=== PATIENT | female | born 1940 | race Caucasian/White ===

== ENCOUNTER 2017-07-11 11:08 | Inpatient (IN) | payer MEDICARE, OTHER ==
[~2017-07-11] VITALS: Ht 160 cm; Wt 80.7 kg
--- NOTE | 2017-07-11 11:20 | NUR ---
AAOX3, BBPA FROM [facility]: BILATERAL LOWER EXTREMITY SWELLING. SKIN IS WARM AND DRY. RESP IS EVEN AND UNLABORED WITH NAD NOTED. DR SPEARS AT BS FOR EVAL.
[2017-07-11 11:31] LABS: BASOPHILS # (AUTO) 0.1 /CMM (0.0-0.2); BASOPHILS % (AUTO) 1.6 % (0.0-2.0); EOSINOPHILS # (AUTO) 0.1 /CMM (0.0-0.7); EOSINOPHILS % (AUTO) 2.1 % (0.0-6.0); HEMATOCRIT 33 % (33-45); HEMOGLOBIN 11.1 g/dL (11.5-14.8); LYMPHOCYTES # (AUTO) 0.6 /CMM (0.8-4.8); LYMPHOCYTES % (AUTO) 9.1 % (20.0-44.0); MEAN CORPUSCULAR HEMOGLOBIN 33 PG (26.0-33.0); MEAN CORPUSCULAR HGB CONC 34 g/dl (31.0-36.0); MEAN CORPUSCULAR VOLUME 97 fL (82-100); MONOCYTES # (AUTO) 0.6 /CMM (0.1-1.30); MONOCYTES % (AUTO) 9.2 % (2.0-12.0); NEUTROPHILS # (AUTO) 5.1 /CMM (1.8-8.9); PLATELET COUNT (AUTO) 87 /CMM (150-450); RDW COEFFICIENT OF VARIATION 13.6 (11.5-15.0); RED BLOOD CELL COUNT(AUTO) 3.37 MIL/uL (4.0-5.2); WHITE BLOOD COUNT (AUTO) 6.5 K/uL (4.3-11.0)
[2017-07-11 11:42] LABS: CALCIUM, SERUM 7.9 mg/dL (8.5-10.1); CARBON DIOXIDE 30 mmol/L (21-32); CHLORIDE 94 mmol/L (98-107); CREATININE 4.6 mg/dL (0.6-1.3); GLUCOSE 172 mg/dL (74-106); POTASSIUM 4.2 mmol/L (3.5-5.1); SODIUM SERUM 131 mmol/L (136-145); UREA NITROGEN, BLOOD 28 mg/dL (7-18)
[2017-07-11 11:51] LABS: TROPONIN I < 0.017 ng/mL (0.00-0.056)
[2017-07-11 11:56] LABS: INR 1.39 (0.87-1.13); PROTHROMBIN TIME 14.7 SECS (9.5-12.7)
[2017-07-11] MEDS ORDERED: LORAZEPAM INJ 2 MG/ML VIAL IV ONE (12:00)
[2017-07-11] MEDS ORDERED: LORAZEPAM INJ 2 MG/ML VIAL ONE (12:01)
--- NOTE | 2017-07-11 12:27 | NUR ---
X-RAY AT BEDSIDE
[2017-07-11 12:32] LABS: BAND % (MANUAL) 1 % (0.0-5.0); EOSINOPHILS % (MANUAL) 3 % (0-4); LYMPHOCYTES % (MANUAL) 11 % (16-48); MONOCYTES % (MANUAL) 4 % (0-11.0); NEUTROPHILS % (MANUAL) 81 (42-76)
--- NOTE | 2017-07-11 12:33 | NUR ---
[facility] PAGED MORIAH JOHNSON PICTURES EDITOR [phone]
[2017-07-11] MEDS ORDERED: ATOR40TA PO (12:36)
[2017-07-11] MEDS ORDERED: MAGN400O6 PO (12:36)
[2017-07-11] MEDS ORDERED: NA P133E RC (12:36)
[2017-07-11] MEDS ORDERED: BISA10SU8 RC (12:36)
[2017-07-11] MEDS ORDERED: CARV12.52 PO (12:45)
[2017-07-11] MEDS ORDERED: DONE10TA44 PO (12:45)
[2017-07-11] MEDS ORDERED: BUME1TAB4 PO (12:45)
[2017-07-11] MEDS ORDERED: CLON0.1T PO (12:45)
[2017-07-11] MEDS ORDERED: DIPH-873 PO (12:45)
--- NOTE | 2017-07-11 13:09 | NUR ---
SECOND CALL TO MORIAH JOHNSON [phone]. PER [facility] [employer] MANAGER NOW 1899.
[2017-07-11] MEDS ORDERED: FOLI0.8T2 PO (13:10)
[2017-07-11] MEDS ORDERED: CINA30TA PO (13:10)
[2017-07-11] MEDS ORDERED: SERT25TA PO (13:10)
[2017-07-11] MEDS ORDERED: NIFE60TA69 PO (13:10)
[2017-07-11] MEDS ORDERED: OMEP20CA10 PO (13:10)
[2017-07-11] MEDS ORDERED: [UNRECOGNIZED DRUG - CODE] PO (13:10)
[2017-07-11] MEDS ORDERED: INSU3INS6 SQ (13:10)
[2017-07-11] MEDS ORDERED: HYDR-4077 PO (13:10)
[2017-07-11] MEDS ORDERED: LORA1TAB PO ×2 (13:10)
[2017-07-11] MEDS ORDERED: INSU100V3 SQ (13:10)
[2017-07-11] MEDS ORDERED: ONDA4TAB5 PO (13:10)
[2017-07-11] MEDS ORDERED: ZOLP5TAB7 PO (13:10)
--- NOTE | 2017-07-11 13:41 | NUR ---
Patient is resting comfortably in bed with eyes closed. Easily aroused. VSS
--- NOTE | 2017-07-11 14:04 | NUR ---
REPORT GIVEN TO THERESA Obrien RN FOR CECILIA MS [id number]
--- NOTE | 2017-07-11 15:00 | NUR ---
PT. ARRIVING FROM ER,VIA STRETCHER,INITIALLY YELLING OFF AND ON,WANTING TO GET OOB.
[2017-07-11] MEDS ORDERED: MAG HYDROX/AL HYDROX/SIMETH 30 ML UDC PO PRN (16:00)
[2017-07-11] MEDS ORDERED: HYDROCODONE/APAP 5/325MG 1 EACH TABLET PO PRN (16:00)
[2017-07-11] MEDS ORDERED: ENOXAPARIN SODIUM 40 MG/0.4 ML DISP.SYRIN SQ SCH (16:00)
[2017-07-11] MEDS ORDERED: ONDANSETRON HCL/PF 4 MG/2 ML VIAL IVP PRN (16:00)
[2017-07-11] MEDS ORDERED: BISACODYL SUPP (10 MG) 10 MG/SUPP.RECT SUPP.RECT RC PRN (16:00)
[2017-07-11] MEDS ORDERED: DEXTROSE 50%-WATER 50 ML DISP.SYRIN IV PRN ×2 (16:00→21:00)
[2017-07-11] MEDS ORDERED: MAGNESIUM HYDROXIDE 30 ML UDC PO PRN (16:00)
[2017-07-11] MEDS ORDERED: LORAZEPAM 1 MG TABLET PO PRN (16:00)
[2017-07-11] MEDS ORDERED: ACETAMINOPHEN 325 MG TABLET PO PRN (16:00)
--- NOTE | 2017-07-11 16:45 | NUR ---
DUE TO CONFUSION RELOCATED TO RM. 309-2 WITH A 1-1 SITTER.
[2017-07-11 17:19] VITALS: BP 153/78
--- NOTE | 2017-07-11 17:30 | NUR ---
UNABLE TO DO ADMIT PHOTOS PER DIEM ARRIVING AT THIS TIME.ADDITIONALLY CAN NOT GIVE COREG MED OR BUMEX DUE TO DIALYSIS AND POSSIBILITY OF HYPOTENSION FOLLOWING DIALYSIS.
[2017-07-11] MEDS: BLOOD SUGAR DIAGNOSTIC 1 EACH STRIP IN SCH ×2 (17:45→21:32)
[2017-07-11] MEDS: BUMETANIDE (1 MG) 1 MG TABLET PO SCH ×2 (17:46→21:24)
[2017-07-11] MEDS: CARVEDILOL 12.5 MG TABLET PO SCH ×2 (17:49→21:25)
--- NOTE | 2017-07-11 19:45 | NUR ---
MS DERICK INITIAL NOTES RECEIVED REPORT FROM AM NURSE THERESA Luis CHECKED PT SEEN IN BED ON SEMI FOWLERS POSITION ,AWAKE AND CONFUSION NOTED, SPEAK WOLOF LANGUAGE ONLY, DIALYSIS TREATMENT STILL GOING ON , DIALYSIS NURSE AT THE BEDSIDE. NO SIGNS OF ANY ACUTE DISTRESS NOTED. WILL CONTINUE TO MONITOR.
--- NOTE | 2017-07-11 20:20 | NUR ---
MS MANAGER LIGHTING NOTES' DIALYSIS TREATMENT DONE, PT STILL AWAKE AND SEEMS UPSET AND CONFUSED. TRIED TO TALKED TO HER IN PORTUGUESE SIMPLE WORD THAT I KNOW TO CALMED HER DOWN. VITAL SIGNS STABLE NO SIGNS OF ANY ACUTE DISTRESS NOTED. COVERED HER WITH WARM BLANKET AND WILL CONTINUE TO MONITOR.
[2017-07-11] MEDS: Z GUARD REMEDY 2 OZ OINT TP PRN (21:00)
[2017-07-11] MEDS ORDERED: INSULIN REGULAR, HUMAN 100 UNIT/ML 3 ML VIAL SQ PRN (21:00)
[2017-07-11 21:03] VITALS: BP 157/74
[2017-07-11] MEDS: CLONIDINE HCL 0.1 MG TABLET PO SCH (21:24)
[2017-07-11] MEDS: DONEPEZIL 5 MG TABLET PO SCH (21:25)
[2017-07-11] MEDS: ATORVASTATIN 40 MG TABLET PO SCH (21:30)
[2017-07-11] MEDS: NIFEdipine XL 60 MG TAB PO SCH (21:30)
--- NOTE | 2017-07-11 21:30 | NUR ---
FIRE SPRINKLER INSTALLER/NOTES PT DAUGHTER ARGENIS CALLED AND TELLING ME THAT IF POSSIBLE GAVE AMBIEN AND ATIVAN TOGETHER TO LET HER MOM SLEEP TONIGHT. SHE ALSO REQUEST IF ANY CONCERNED REGARDING ANY TEST LIKE MRI AND CT SCAN , NEEDS TO NOTIFY HER FIRST . SPOKE TO HER THAT HER MOM DOING FINE RESTING AT THIS TIME AFTER DIALYSIS DONE. BUT NO SIGNS OF ANY AGITATION OR ANY DISCOMFORT. AND IF NEEDS TO GIVE HER SLEEP MEDICATION OR ANXIETY MEDS SI WILL GIVE IT LONG IT ORDERED BY THE DOCTOR. STATED "THANK YOU ".
[2017-07-11] MEDS ORDERED: BLOOD SUGAR DIAGNOSTIC 1 EACH STRIP IN SCH (22:00)
[2017-07-11] MEDS: ZOLPIDEM TARTRATE 5 MG TABLET PO PRN (22:26)
[2017-07-11] MEDS: LORAZEPAM 1 MG TABLET PO PRN (22:26)
--- NOTE | 2017-07-11 22:26 | NUR ---
EXECUTIVE KITCHEN MANAGER/NOTES PT AWAKE AT THIS TIME ANXIOUS, SCREAMING ON AND OFF, TRIED TO CALMED HER DOWN FROM OFFERING SOME SNACKS AND GAVE AMBIEN AND ATIVAN TOO ORDERED AND PER DAUGHTER REQUESTED, NO ASPIRATION NOTED, ATE WELL ,NO SIGNS OF ANY ACUTE DISTRESS NOTED. AFTER SHE ATE , SPONGE BATH RENDERED TO HELPED HER FRESH AND STOPPING HER FROM SCRATCHING HER SKIN Z-GUARD APPLIED ORDERED , KEPT HER WARM AND COMFORTABLE AT ALL TIMES. WILL CONTINUE MONITORING CLOSELY FOR SAFETY.
[2017-07-11] MEDS: INSULIN DETEMIR 100 UNIT/ML CARTRIDGE SQ SCH (22:41)
[2017-07-11] MEDS: INSULIN REGULAR, HUMAN 100 UNIT/ML 3 ML VIAL SQ PRN (22:44)
--- NOTE | 2017-07-12 00:18 | NUR ---
MS UTILITY WORKER FILM PROCESSING , RE- ASSESSMENT NOTED PT SLEEPING COMFORTABLY AT THIS TIME, BREATHING EVEN AND NON-LABORED, NO SIGNS OF ANY ACUTE DISTRESS NOTED. KEPT HER WARM AND COMFORTABLE AT ALL TIMES. WILL CONTINUE TO MONITOR.
[2017-07-12] MEDS: LORAZEPAM 1 MG TABLET PO PRN ×2 (04:09→22:27)
--- NOTE | 2017-07-12 04:15 | NUR ---
MS DERICK NOTES PT WOKE UP STARTED SCREAMING AND TRYING TO GET UP ,TRIED TO CALMED HER DOWN AND CALLED HER DAUGHTER ARGENIS SO SHE CAN SPOKE TO HER , BUT DAUGHTER TOLD ME SHE'S CONFUSED AT TIMES AND SHE DON'T LISTEN TO HER , SHE ALSO MENTIONED TO ME THAT PT CALLING HER MOTHER AND FATHER THAT PASSES AWAY LONG TIME AGO. ATIVAN GIVEN AND PT TOLERATED WELL, APPLIED ALSO SOME LOTION TO HER SKIN BECAUSE NOTICED SHE STARTED SCRATCHING ALL OVER. LET HER SIT FOR A WHILE AND CONTINUE MONITORING FOR SAFETY.
--- NOTE | 2017-07-12 05:27 | NUR ---
MS DERICK NOTES BENADRYL 25 MG PO GIVEN ORDERED. PUT HER BACK TO BED FOR HER SAFETY, STILL ANXIOUS AND CONFUSED, REPEATING WORDS "2 SLEEP MEDICINE ". STILL REFUSING TO PUT HER IV LINE BACK. KEPT HER WARM AND COMFORTABLE AT ALL TIMES.WILL CONTINUE TO MONITOR.
[2017-07-12] MEDS ORDERED: diphenhydrAMINE HCL 50 MG/ML VIAL IV PRN (05:30)
[2017-07-12] MEDS ORDERED: diphenhydrAMINE HCL 50 MG/ML VIAL ONE (05:32)
[2017-07-12] MEDS ORDERED: diphenhydrAMINE HCL 25 MG CAPSULE ONE (05:45)
[2017-07-12] MEDS: diphenhydrAMINE HCL 25 MG CAPSULE PO PRN ×3 (05:47→17:43)
[2017-07-12] MEDS: BLOOD SUGAR DIAGNOSTIC 1 EACH STRIP IN SCH ×4 (06:31→21:22)
[2017-07-12] MEDS: Z GUARD REMEDY 2 OZ OINT TP PRN (06:31)
--- NOTE | 2017-07-12 06:44 | NUR ---
JACQUARD CARD LACER/NOTES BLOOD SUGAR CHECKED 124, NO INSULIN GIVEN ORDERED, STILL REFUSING TO CHANGE HER GOWN . KEPT HER WARM AND COMFORTABLE AT ALL TIMES. PERIODS OF CONFUSION AND ANXIETY ON AND OFF. WILL CONTINUE MONITORING.
--- NOTE | 2017-07-12 07:01 | NUR ---
MS TAPPING MACHINE OPERATOR AUTOMATIC CLOSING NOTES PATIENT IN HER BED ON SITTING POSITION WITH BOTH LOWER LEGS UP ON PILLOWS COMFORTABLY ,EDEMA SUBSIDES NOTED ON HER RIGHT FOOT AND LEGS. CALMED AT THIS TIME NO SIGNS OF ANY ACUTE DISTRESS NOTED, BREATHING EVEN AND UN-LABORED, COVERED WITH BLANKET TO KEEP HER WARM. NO IV LINE AT THIS TIME , CHARGE NURSE AWARE BECAUSE PT SO CONFUSED AND FIGHTING EARLIER WHEN TRIED TO RE-INSERTED HER NEW IV LINE. AV SHUNT NO BLEEDING NOTED ON HIS LEFT UPPER ARM. SITTER AT THE BEDSIDE FOR SAFETY. WILL ENDORSE TO AM NURSE FOR CONTINUITY OF CARE.
--- NOTE | 2017-07-12 07:30 | NUR ---
RN OPENING NOTES RECEIVED PT. IN BED SLEEPING, EASY TO AROUSE, A&OX2. NO SOB, NO S/S OF ACUTE DISTRESS. BED IS IN LOW POSITION, 2 SIDE RAILS UP, PT. HAS 1:1 SITTER, DUE TO PULLING OUT 2 IV'S. CALL LIGHT WITHIN REACH. WILL CONTINUE TO ASSESS AND MONITOR.
[2017-07-12 08:00] VITALS: BP 157/73
[2017-07-12] MEDS ORDERED: CARVEDILOL 12.5 MG TABLET PO SCH (09:00)
[2017-07-12 10:09] LABS: BASOPHILS % (AUTO) 0.6 % (0.0-2.0); EOSINOPHILS # (AUTO) 0.1 /CMM (0.0-0.7); EOSINOPHILS % (AUTO) 2.2 % (0.0-6.0); HEMATOCRIT 35 % (33-45); HEMOGLOBIN 11.5 g/dL (11.5-14.8); LYMPHOCYTES # (AUTO) 0.8 /CMM (0.8-4.8); LYMPHOCYTES % (AUTO) 12.6 % (20.0-44.0); MEAN CORPUSCULAR HEMOGLOBIN 33 PG (26.0-33.0); MEAN CORPUSCULAR HGB CONC 33 g/dl (31.0-36.0); MEAN CORPUSCULAR VOLUME 99 fL (82-100); MONOCYTES # (AUTO) 0.9 /CMM (0.1-1.30); MONOCYTES % (AUTO) 14.1 % (2.0-12.0); NEUTROPHILS # (AUTO) 4.4 /CMM (1.8-8.9); NEUTROPHILS % (AUTO) 70.5 % (43.0-81.0); PLATELET COUNT (AUTO) 61 /CMM (150-450); RDW COEFFICIENT OF VARIATION 14.7 (11.5-15.0); RED BLOOD CELL COUNT(AUTO) 3.52 MIL/uL (4.0-5.2); WHITE BLOOD COUNT (AUTO) 6.3 K/uL (4.3-11.0)
[2017-07-12 10:25] LABS: CALCIUM, SERUM 8.1 mg/dL (8.5-10.1); CARBON DIOXIDE 33 mmol/L (21-32); CHLORIDE 96 mmol/L (98-107); CREATININE 4.3 mg/dL (0.6-1.3); GLUCOSE 109 mg/dL (74-106); MAGNESIUM 1.7 mg/dL (1.8-2.4); PHOSPHORUS 3.4 mg/dL (2.5-4.9); POTASSIUM 4.5 mmol/L (3.5-5.1); SODIUM SERUM 137 mmol/L (136-145); UREA NITROGEN, BLOOD 24 mg/dL (7-18)
[2017-07-12] MEDS: NEOMY SULF/BACITRAC ZN/POLY 15 GM TUBE TP SCH (10:30)
[2017-07-12 10:38] LABS: CHOLESTEROL 88 mg/dL (<200); HDL CHOLESTEROL 45 mg/dL (40-60); LDL 29 mg/dL (0-99); TRIGLYCERIDES 75 mg/dL (30-150)
[2017-07-12] MEDS: CINACALCET HCL 30 MG TABLET PO SCH (10:57)
[2017-07-12] MEDS: NIFEdipine XL 60 MG TAB PO SCH ×2 (10:58→20:53)
[2017-07-12] MEDS: BUMETANIDE (1 MG) 1 MG TABLET PO SCH ×3 (10:58→17:43)
[2017-07-12] MEDS: SERTRALINE HCL 25 MG TABLET PO SCH (10:59)
[2017-07-12] MEDS: VIT B CMPLX 3/FA/VIT C/BIOTIN 1 TAB TABLET PO SCH (10:59)
[2017-07-12] MEDS: CARVEDILOL 12.5 MG TABLET PO SCH ×2 (11:00→17:43)
[2017-07-12] MEDS: CLONIDINE HCL 0.1 MG TABLET PO SCH ×2 (11:00→20:53)
[2017-07-12] MEDS: PANTOPRAZOLE 40 MG TABLET.DR PO SCH (11:02)
[2017-07-12] MEDS: INSULIN REGULAR, HUMAN 100 UNIT/ML 3 ML VIAL SQ PRN ×2 (12:42→17:55)
[2017-07-12 12:52] LABS: BAND % (MANUAL) 1 % (0.0-5.0); EOSINOPHILS % (MANUAL) 1 % (0-4); LYMPHOCYTES % (MANUAL) 11 % (16-48); MONOCYTES % (MANUAL) 9 % (0-11.0); NEUTROPHILS % (MANUAL) 78 (42-76)
[2017-07-12 16:00] VITALS: BP 143/91
[2017-07-12 18:02] LABS: APPEARANCE,URINE TURBID (CLEAR); BILIRUBIN,URINE NEGATIVE (NEGATIVE); BLOOD, URINE TRACE-INTA Ery/uL (NEGATIVE); COLOR,URINE YELLOW (YELLOW); KETONES,URINE NEGATIVE (NEGATIVE); LEUKOCYTE ESTERASE ,URINE NEGATIVE (NEGATIVE); NITRITE, URINE NEGATIVE (NEGATIVE); PH,URINE 8.5 (5.0-8.0); PROTEIN,URINE 2+ mg/dl (NEGATIVE); UGLUCOSE NEGATIVE (NEGATIVE)
[2017-07-12 19:12] VITALS: BP 143/91
--- NOTE | 2017-07-12 19:40 | NUR ---
RN OPENING NOTES RECEIVED REPORT FROM DAYSHIFT RNPRESTON. FOUND Pt AWAKE SITTING IN CHAIR. FAMILY VISITING AT BEDSIDE. NO S/S OF ACUTE DISTRESS OR SOB NOTED. Pt IS A/OX2, IVORIAN/MALTESE SPEAKING ONLY. NO SIGNS OF PAIN AT THIS TIME. IV ACCESS PULLED OUT DURING DAYSHIFT. WILL PUT IN A NEW IV. WITH 1:1 SITTER AT BEDSIDE. SAFETY MEASURES IN PLACE. BED LOW, LOCKED, HOB ELEVATED, SIDE RAILS UP, CALL LIGHT AND BEDSIDE TABLE WITHIN REACH. WILL CONTINUE TO MONITOR Pt THROUGHOUT THE NIGHT FOR SAFETY.
--- NOTE | 2017-07-12 19:45 | NUR ---
RN OPENING NOTES RECEIVED REPORT FROM BOYDORISAIAS RNKIN. FOUND Pt AWAKE, RESTING IN BED. NO S/S OF ACUTE DISTRESS OR SOB NOTED. Pt IS A/OX4, VERBAL, ABLE TO MAKE NEEDS KNOWN. IV ACCESS ON RFA #18G, IVF NS @100ML/HR. SAFETY MEASURES IN PLACE. BED LOW, LOCKED, HOB ELEVATED, SIDE RAILS UP, CALL LIGHT AND BEDSIDE TABLE WITHIN REACH. WILL CONTINUE TO MONITOR Pt THROUGHOUT THE NIGHT FOR SAFETY. Addendum: 07/12/17 at 2032 by CATERINA SAUER RN WRONG Pt. NOTE FOR Pt IN RM 327-1
--- NOTE | 2017-07-12 19:47 | NUR ---
RN CLOSING NOTES 1:1 SITTER AT BEDSIDE. PT. SITTING UP OB BEDSIDE COMMODE, A&OX2. NO SOB, NO S/S OF ACUTE DISTRESS. PT.'S FAMILY AT BEDSIDE REQUESTED A DRUM STENCILER CONSULT, AND SWALLOW EVALUATION DUE TO PT. HAVING A GAG REFLEX AFTER EATING AT HOME. BED IS IN LOW POSITION, 2 SIDE RAILS UP, AND CALL LIGHT WITHIN REACH. WILL ENDORSE REPORT TO RETIREMENT VILLAGE MANAGER NURSE.
[2017-07-12] MEDS: ZOLPIDEM TARTRATE 5 MG TABLET PO PRN (20:54)
[2017-07-12] MEDS: ATORVASTATIN 40 MG TABLET PO SCH (21:07)
[2017-07-12] MEDS: DONEPEZIL 5 MG TABLET PO SCH (21:07)
[2017-07-12] MEDS: INSULIN DETEMIR 100 UNIT/ML CARTRIDGE SQ SCH (21:36)
[2017-07-12 22:00] VITALS: BP 131/59
--- NOTE | 2017-07-12 22:16 | NUR ---
ACCUCHECK BG 156. ADMINISTERED SCHEDULED LEVEMIR 15UN.
[2017-07-12 22:38] LABS: BACTERIA,URINE 3+ /HPF (None Seen); RBC,URINE 0-2 /HPF (0-2); SQUAMOUS EPITHELIAL CELL,UR Moderate /HPF (None Seen); WBC,URINE 0-2 /HPF (0-3); YEAST,URINE Few /HPF (None Seen)
[2017-07-13] MEDS: diphenhydrAMINE HCL 25 MG CAPSULE PO PRN ×2 (00:37→09:02)
--- NOTE | 2017-07-13 06:30 | NUR ---
ACCUCHECK BG 170. ADMINISTERED 3UN OF INSULIN PER SLIDING SCALE.
[2017-07-13] MEDS: LORAZEPAM 1 MG TABLET PO PRN ×2 (06:33→23:17)
[2017-07-13] MEDS: INSULIN REGULAR, HUMAN 100 UNIT/ML 3 ML VIAL SQ PRN ×3 (06:44→23:07)
--- NOTE | 2017-07-13 06:45 | NUR ---
RN CLOSING NOTES: Pt CURRENTLY GETTING HD AT BEDSIDE. OK TO PUT ON PRN GAIL SOFT RESTRAINTS DURING HD PER DR. RASCON's ORDER. 1:1 SITTER. NO SIGNIFICANT CHANGES IN Pt's CONDITION. Pt STABLE AT THIS TIME. ALL NEEDS MET AND ATTENDED TO. SAFETY MEASURES IN PLACE. WILL ENDORSE TO DAYSHIFT RN FOR Pt's CECILIA.
[2017-07-13] MEDS: BLOOD SUGAR DIAGNOSTIC 1 EACH STRIP IN SCH ×4 (06:47→22:55)
[2017-07-13] MEDS: PANTOPRAZOLE 40 MG TABLET.DR PO SCH (07:30)
--- NOTE | 2017-07-13 07:30 | NUR ---
RN OPENING NOTES PT. HAS 1:1 SITTER, RECEIVED PT. IN BED A&OX2, RECEIVING HEMODIALYSIS AT THIS TIME. PT. HAS SOFT WRIST RESTRAINTS BILATERALLY DUE TO PT. TRYING TO PULL OUT CATHETERS DURING DIALYSIS. PT. HAS NO SOB, NO S/S OF ACUTE DISTRESS. BED IS IN LOW POSITION, 2 SIDE RAILS UP. CALL LIGHT WITHIN REACH. WILL CONTINUE TO ASSESS AND MONITOR.
--- NOTE | 2017-07-13 08:20 | NUR ---
HEMODIALYSIS WAS COMPLETED WITHOUT COMPLICATIONS, AND WITH 2 L OUTPUT. PT.'S SOFT WRIST RESTRAINTS WERE REMOVED.
[2017-07-13] MEDS: CINACALCET HCL 30 MG TABLET PO SCH (09:03)
[2017-07-13] MEDS: CARVEDILOL 12.5 MG TABLET PO SCH ×2 (09:03→17:29)
[2017-07-13] MEDS: CLONIDINE HCL 0.1 MG TABLET PO SCH ×2 (09:03→22:40)
[2017-07-13] MEDS: VIT B CMPLX 3/FA/VIT C/BIOTIN 1 TAB TABLET PO SCH (09:04)
[2017-07-13] MEDS: BUMETANIDE (1 MG) 1 MG TABLET PO SCH ×3 (09:04→17:29)
[2017-07-13] MEDS: NIFEdipine XL 60 MG TAB PO SCH ×2 (09:04→22:39)
[2017-07-13] MEDS: SERTRALINE HCL 25 MG TABLET PO SCH (09:04)
[2017-07-13] MEDS: NEOMY SULF/BACITRAC ZN/POLY 15 GM TUBE TP SCH (09:05)
[2017-07-13 09:17] VITALS: BP 147/81
[2017-07-13] MEDS: CEPHALEXIN MONOHYDRATE 250 MG CAPSULE PO SCH ×2 (12:00→22:40)
[2017-07-13] MEDS: FLUCONAZOLE (100 MG) 100 MG TABLET PO SCH (12:45)
[2017-07-13 16:00] VITALS: BP 141/69
--- NOTE | 2017-07-13 19:40 | NUR ---
RN OPENING NOTES RECEIVED REPORT FROM BOYDIDFT MELANI JOHNSTON. FOUND Pt AWAKE RESTING IN BED. NO S/S OF ACUTE DISTRESS OR SOB NOTED. FAMILY VISITING AT BEDSIDE. Pt IS A/OX1 CONFUSED. 1:1 SITTER. NO IV ACCESS, MD AWARE. [place]ACK[place]IE AV SHUNT. SAFETY MEASURES IN PLACE. BED LOW, LOCKED, HOB ELEVATED, SIDE RAILS UP CALL LIGHT AND BEDSIDE TABLE WITHIN REACH. WILL CONTINUE TO MONITOR Pt THROUGHOUT THE NIGHT.
--- NOTE | 2017-07-13 20:24 | NUR ---
RN CLOSING NOTES 1:1 SITTER AT BEDSIDE. PT. SITTING UP IN BED, A&OX2. NO SOB, NO S/S OF ACUTE DISTRESS. PT.'S FAMILY AT BEDSIDE. BED IS IN LOW POSITION, 2 SIDE RAILS UP, AND CALL LIGHT WITHIN REACH. WILL ENDORSE REPORT TO TIMBER HAND NURSE.
[2017-07-13 22:00] VITALS: BP 146/73
--- NOTE | 2017-07-13 22:00 | NUR ---
ACCUCHECK BG 156. ADMINISTERED 2UN OF INSULIN PER SLIDING SCALE. IN ADDITION TO SCHEDULED LEVEMIR 15UN.
[2017-07-13] MEDS: ATORVASTATIN 40 MG TABLET PO SCH (22:37)
[2017-07-13] MEDS: DONEPEZIL 5 MG TABLET PO SCH (22:40)
[2017-07-13] MEDS: INSULIN DETEMIR 100 UNIT/ML CARTRIDGE SQ SCH (23:06)
[2017-07-13] MEDS: ZOLPIDEM TARTRATE 5 MG TABLET PO PRN (23:17)
[2017-07-14] MEDS: BLOOD SUGAR DIAGNOSTIC 1 EACH STRIP IN SCH ×4 (06:34→21:36)
--- NOTE | 2017-07-14 06:35 | NUR ---
ACCUCHECK 57. GAVE Pt OJ AND BREAD. WILL RECHECK BG.
--- NOTE | 2017-07-14 06:40 | NUR ---
RN CLOSING NOTES NO OTHER SIGNIFICANT CHANGES DURING THE SHIFT. Pt's CONDITION REMAINS STABLE. NO S/S OF ACUTE DISTRESS OR SOB NOTED DURING THE NIGHT. ALL NEEDS MET AND ATTENDED TO. SAFETY MEASURES IN PLACE. WILL ENDORSE TO DAYSHIFT RN FOR Pt's CECILIA.
--- NOTE | 2017-07-14 06:50 | NUR ---
RECHECKED BG 75.
[2017-07-14] MEDS: PANTOPRAZOLE 40 MG TABLET.DR PO SCH (07:30)
--- NOTE | 2017-07-14 07:50 | NUR ---
MS RN OPENING NOTE REPORT RECEIVED ON THE PATIENT AT THE BEDSIDE. PATIENT IS AWAKE, CONFUSED AND AGITATED. INTRODUCED TO PATIENT IN SW[place], PATIENT WAS RESPONSIVE TO SIMPLE CONTEXT. UNDERSTANDS/SPEAKS AND REPLIES TO UKRAINIAN/SWISS ONLY. SITTER AT THE BEDSIDE. BED IS LOCKED IN LOWEST POSITION. SIDE RAILS UP X 3. BED ALARM ON. WILL CONTINUE TO MONITOR.
[2017-07-14 08:00] VITALS: BP 137/70
--- NOTE | 2017-07-14 08:56 | NUR ---
MS RN NOTE PATIENT REFUSED PROTONIX. TRIED COMING BACK TWICE. STILL REFUSING. MEDICATION NOT ADMINISTERED.
[2017-07-14] MEDS: CARVEDILOL 12.5 MG TABLET PO SCH ×2 (09:00→16:27)
[2017-07-14] MEDS: CLONIDINE HCL 0.1 MG TABLET PO SCH ×2 (09:00→20:35)
[2017-07-14] MEDS: VIT B CMPLX 3/FA/VIT C/BIOTIN 1 TAB TABLET PO SCH (09:00)
[2017-07-14] MEDS: CEPHALEXIN MONOHYDRATE 250 MG CAPSULE PO SCH ×2 (09:59→20:25)
[2017-07-14] MEDS: CINACALCET HCL 30 MG TABLET PO SCH (09:59)
[2017-07-14] MEDS: BUMETANIDE (1 MG) 1 MG TABLET PO SCH ×3 (09:59→16:38)
[2017-07-14] MEDS: SERTRALINE HCL 25 MG TABLET PO SCH (10:00)
[2017-07-14] MEDS: FLUCONAZOLE (100 MG) 100 MG TABLET PO SCH (10:00)
[2017-07-14] MEDS: NIFEdipine XL 60 MG TAB PO SCH ×2 (10:05→20:25)
[2017-07-14] MEDS ORDERED: PANTOPRAZOLE 40 MG/PACK PACK GT SCH (10:11)
--- NOTE | 2017-07-14 10:12 | NUR ---
MS RN NOTE NOTE NEPHRO SHANTEL NOT ADMINISTERED. MEDICATION COULD NOT BE SCANNED. PHARMACY NOTIFIED. PHARMACY WILL RESCHEDULE MEDICATION.
--- NOTE | 2017-07-14 10:15 | NUR ---
MS RN NOTE CARVEDILOL AND CLONIDINE NOT ADMINISTERED AT THIS TIME. PATIENT'S BP 135/62 HR 67. ADMINISTERED ONE OUT OF THREE BP MEDICATIONS. WILL MONITOR BP AND RECHECK IN 30 MINUTES. MEDICATIONS WILL BE ADMINISTERED IF NEEDED.
[2017-07-14] MEDS ORDERED: CEPH250C PO (10:47)
[2017-07-14] MEDS ORDERED: FLUC100T8 PO (10:47)
[2017-07-14] MEDS: INSULIN REGULAR, HUMAN 100 UNIT/ML 3 ML VIAL SQ PRN ×3 (11:12→21:41)
--- NOTE | 2017-07-14 11:12 | NUR ---
MS RN NOTE PATIENT WAS SHAKING AND CALLING A DOCTOR. NURSE, CHARGE NURSE MARY LOU, AND THE CAR ELECTRONICS INSTALLER TIFF AT THE BEDSIDE. BLOOD PRESSURE 90/45. PATIENT PLACED IN MODIFIED TRENDELENBURG. PLACED ON 2L O2 VIA NC. BLOOD GLUCOSE MONITORED AND RECORDER 168MG/DL. PER CAR ELECTRONICS INSTALLER ORDER PER SCALE INSULIN NON-ADMINISTERED PATIENT IS NOT EATING AND REFUSING FOOD.
[2017-07-14 11:35] LABS: BASOPHILS % (AUTO) 0.4 % (0.0-2.0); EOSINOPHILS # (AUTO) 0.1 /CMM (0.0-0.7); HEMATOCRIT 31 % (33-45); HEMOGLOBIN 10.3 g/dL (11.5-14.8); LYMPHOCYTES # (AUTO) 0.8 /CMM (0.8-4.8); LYMPHOCYTES % (AUTO) 11.9 % (20.0-44.0); MEAN CORPUSCULAR HEMOGLOBIN 33 PG (26.0-33.0); MEAN CORPUSCULAR HGB CONC 33 g/dl (31.0-36.0); MEAN CORPUSCULAR VOLUME 99 fL (82-100); MONOCYTES # (AUTO) 0.7 /CMM (0.1-1.30); MONOCYTES % (AUTO) 10.3 % (2.0-12.0); NEUTROPHILS # (AUTO) 4.9 /CMM (1.8-8.9); NEUTROPHILS % (AUTO) 75.4 % (43.0-81.0); PLATELET COUNT (AUTO) 62 /CMM (150-450); RDW COEFFICIENT OF VARIATION 14.2 (11.5-15.0); RED BLOOD CELL COUNT(AUTO) 3.12 MIL/uL (4.0-5.2); WHITE BLOOD COUNT (AUTO) 6.5 K/uL (4.3-11.0)
[2017-07-14 12:12] LABS: CALCIUM, SERUM 7.3 mg/dL (8.5-10.1); CARBON DIOXIDE 31 mmol/L (21-32); CHLORIDE 92 mmol/L (98-107); CREATININE 5.1 mg/dL (0.6-1.3); GLUCOSE 176 mg/dL (74-106); MAGNESIUM 1.6 mg/dL (1.8-2.4); PHOSPHORUS 2.9 mg/dL (2.5-4.9); SODIUM SERUM 130 mmol/L (136-145); UREA NITROGEN, BLOOD 28 mg/dL (7-18)
[2017-07-14] MEDS: Z GUARD REMEDY 2 OZ OINT TP PRN (12:13)
[2017-07-14 12:14] LABS: BAND % (MANUAL) 4 % (0.0-5.0); EOSINOPHILS % (MANUAL) 1 % (0-4); LYMPHOCYTES % (MANUAL) 11 % (16-48); MONOCYTES % (MANUAL) 10 % (0-11.0); NEUTROPHILS % (MANUAL) 74 (42-76)
[2017-07-14] MEDS ORDERED: IOHEXOL-350 100 ML VIAL IV ONE (12:47)
[2017-07-14] MEDS ORDERED: IV NS 0.9% 250 ML IV ONE (12:48)
[2017-07-14] MEDS ORDERED: CT SWABBABLE VALVE TRANS SET 1 EA INFUS.SET MC ONE (12:48)
[2017-07-14] MEDS: LORAZEPAM 1 MG TABLET PO PRN ×2 (12:56→21:43)
--- NOTE | 2017-07-14 13:01 | NUR ---
PATIENT REMOVED HER IV LINE IN RFA, PATIENT APPEARS CONFUSED AND DISORIENTED, HX OF DEMENTIA. RE INSERTED IV G 20 IN RIGHT AC WITH GOOD BLOOD RETURN. INFORMED OXYACETYLENE BURNER-TIFF. APPLIED MITTENS TO BILATERAL HANDS TO PREVENT PULLING OFF TUBES. CALLED [facility], CONSENTED CT PULMONARY ANGIOGRAM, WITNESSED BY ANOTHER RN.
--- NOTE | 2017-07-14 14:03 | NUR ---
MS RN NOTE NOTIFIED TIFF OF CT/CHEST X-RAY RESULTS BEING READY. INFORMED MAGNESIUM LEVEL BEING 1.6. ORDERED TO GIVE MAGNESIUM 1 G X1. ORDER NOTED AND ACKNOWLEDGED.
--- NOTE | 2017-07-14 14:13 | NUR ---
MS RN NOTE MEDICATION BUMEX NON ADMINISTERED. PATIENT IS RECEIVING DIALYSIS.
[2017-07-14] MEDS ORDERED: Magnesium 1GM/D5W 100ML PREMIX 100 ML IV SCH ×2 (14:30→17:00)
[2017-07-14 16:00] VITALS: BP 142/72
--- NOTE | 2017-07-14 16:00 | NUR ---
MS RN NOTE DIALYSIS COMPLETED. 1500ML REMOVED. PATIENT TOLERATED PROCEDURE WELL. BP 140/63. TEMPERATURE 97.8. PATIENT IS STABLE. VS WNL.
[2017-07-14] MEDS: NEOMY SULF/BACITRAC ZN/POLY 15 GM TUBE TP SCH (16:38)
--- NOTE | 2017-07-14 19:37 | NUR ---
MS RN CLOSING NOTE. PATIENT IS RESTING IN BED. BED IS IN LOWEST POSITION, LOCKED, SIDE RAILS UP X3, BED ALARM ON. PATIENT IN SALDAÑA'S POSITION. FAMILY AT THE BEDSIDE. ALL NEEDS WITHIN REACH. VS WNL. PATIENT IS STABLE. WILL ENDORSE TO NEXT SHIFT FOR CECILIA.
--- NOTE | 2017-07-14 19:45 | NUR ---
MS RN INITIAL NOTES PT IS LAYING IN BED, AWAKE AND ALERT, VERBALLY RESPONSIVE (ALGERIAN/ SAO TOMEAN SPEAKING ONLY). FAMILY AT BEDSIDE PT IS ON ROOM AIR BREATHING EVENLY AND UNLABORED, NO SIGNS OF SOB OR DISTRESS. IV IS INTACT AND PATENT WITH NO FLUIDS RUNNING AT THIS TIME. BED IS IN LOW AND LOCKED POSITION. SITTER AT BEDSIDE. WILL CONTINUE TO MONITOR PT.
[2017-07-14 20:00] VITALS: BP 139/70
--- NOTE | 2017-07-14 21:00 | NUR ---
BP MEDS PT HAD A DROP IN BP EARLIER TODAY, I HELD CATAPRES BUT CONTINUED TO GIVE PROCARDIA. WILL CONTINUE TO MONITOR PT
[2017-07-14] MEDS: DONEPEZIL 5 MG TABLET PO SCH (21:36)
[2017-07-14] MEDS: ATORVASTATIN 40 MG TABLET PO SCH (21:37)
[2017-07-14] MEDS: INSULIN DETEMIR 100 UNIT/ML CARTRIDGE SQ SCH (21:42)
[2017-07-14] MEDS: ZOLPIDEM TARTRATE 5 MG TABLET PO PRN (21:43)
[2017-07-15] MEDS: diphenhydrAMINE HCL 25 MG CAPSULE PO PRN (01:32)
[2017-07-15] MEDS: BLOOD SUGAR DIAGNOSTIC 1 EACH STRIP IN SCH ×2 (06:14→12:39)
--- NOTE | 2017-07-15 06:27 | NUR ---
MS RN CLOSING NOTES PT IS IN BED ALERT AND AWAKE, CONFUSED. ON 2L NC BREATHING EVENLY AND UNLABORED WITH NO SIGNS OF SOB OR DISTRESS. PT IS READY FOR DISCHARGE, EXIT CARE HAS BEEN COMPLETED. ALL NEEDS WERE ANTICIPATED AND MET. WILL ENDORSE TO DAY SHIFT
--- NOTE | 2017-07-15 07:15 | NUR ---
MS RN OPENING NOTE REPORT RECEIVED ON THE PATIENT. PATIENT IS SLEEPING IN BED COMFORTABLY. VS WNL. SITTER AT THE BEDSIDE. BED IS LOCKED IN LOWEST POSITION, SIDE RAILS ELEVATED X 3, BED ALARM IS ON. ALL NEEDS WITHIN REACH. WILL COME BACK FOR A DAILY ASSESSMENT SHORTLY.
[2017-07-15 08:00] VITALS: BP 158/64
[2017-07-15] MEDS: CLONIDINE HCL 0.1 MG TABLET PO SCH (09:00)
[2017-07-15] MEDS: CARVEDILOL 12.5 MG TABLET PO SCH (09:00)
[2017-07-15] MEDS: Z GUARD REMEDY 2 OZ OINT TP PRN ×2 (09:02→12:41)
[2017-07-15] MEDS: NEOMY SULF/BACITRAC ZN/POLY 15 GM TUBE TP SCH (09:03)
[2017-07-15 09:04] VITALS: BP 158/64
[2017-07-15] MEDS: NIFEdipine XL 60 MG TAB PO SCH (09:04)
[2017-07-15] MEDS: CINACALCET HCL 30 MG TABLET PO SCH (09:04)
[2017-07-15] MEDS: SERTRALINE HCL 25 MG TABLET PO SCH (09:04)
[2017-07-15] MEDS: CEPHALEXIN MONOHYDRATE 250 MG CAPSULE PO SCH (09:04)
[2017-07-15] MEDS: BUMETANIDE (1 MG) 1 MG TABLET PO SCH ×2 (09:04→12:35)
[2017-07-15] MEDS: VIT B CMPLX 3/FA/VIT C/BIOTIN 1 TAB TABLET PO SCH (09:04)
[2017-07-15] MEDS: FLUCONAZOLE (100 MG) 100 MG TABLET PO SCH (09:04)
--- NOTE | 2017-07-15 09:06 | NUR ---
MS RN NOTE CARVEDILOL AND CLONIDINE NON ADMINISTERED AT THIS TIME. SPACING OUT THE BP MEDICATIONS. NIFEDIPINE IS ADMINISTERED. WILL CONTINUE TO MONITOR BP, IF NEEDED, WILL ADMINISTER ADDITIONAL BP MED. PATIENT HAD AN EPISODE OF HYPOTENSION YESTERDAY.
--- NOTE | 2017-07-15 14:45 | NUR ---
MS GRADUATE INTERNSHIP NOTE PATIENT LEFT THE UNIT IN A GURNEY ACCOMPANIED BY THE EMT. REPORT GIVEN TO [facility] HOME WHERE PATIENT IS BEING TRANSFERRED TO . SPOKE TO MASOOD AND GAVE REPORT ON PATIENT. SPOKE TO PATIENT'S DAUGHTER ARGENIS AND INFORMED HER OF PATIENT BEING DISCHARGED AND TRANSPORTED TO [facility] BY AMBULANCE. ALL BELONGINGS ARE ACCOUNTED FOR. PATIENT IS STABLE AT THE TIME OF THE TRANSFER. VS WNL.
== END 2017-07-15 14:45 | DRG 757 ==
LOC: ER 11:21 → MED 14:06
PROVIDERS: ADMIT Nurse Practitioner Acute Care; ATTEND Nurse Practitioner Acute Care
PROC: 5A1D60Z (ICD-10-PCS; principal; 2017-07-11)
DX: B37.49 Other urogenital candidiasis (principal); G93.41 Metabolic encephalopathy; J96.01 Acute respiratory failure with hypoxia; I13.2 Hypertensive heart and chronic kidney disease with heart failure and with stage 5 chronic kidney disease, or end stage renal disease; N18.6 End stage renal disease; E11.22 Type 2 diabetes mellitus with diabetic chronic kidney disease; D69.6 Thrombocytopenia, unspecified; F03.90 Unspecified dementia, unspecified severity, without behavioral disturbance, psychotic disturbance, mood disturbance, and anxiety; E11.65 Type 2 diabetes mellitus with hyperglycemia; E87.1 Hypo-osmolality and hyponatremia; I50.9 Heart failure, unspecified; Z99.2 Dependence on renal dialysis; K21.9 Gastro-esophageal reflux disease without esophagitis; F39 Unspecified mood [affective] disorder; E78.5 Hyperlipidemia, unspecified; Z88.7 Allergy status to serum and vaccine; D63.8 Anemia in other chronic diseases classified elsewhere; R23.4 Changes in skin texture; N64.59 Other signs and symptoms in breast
CPT/HCPCS: 36415; 71010-TC; 80048-TC; 80061-TC; 81000-TC; 82962-TC; 83735-TC; 84100-TC; 84484-TC; 85025-TC; 85730-TC; 87081-TC; 87086-TC; 90935-TC; A4606; J1200; J1815; J2060; J3475; J7050; Q0163; Q9967; Z7610

== ENCOUNTER 2017-10-18 20:11 | Inpatient (IN) | payer MEDICARE, OTHER ==
[~2017-10-18] VITALS: Ht 152.4 cm; Wt 66.7 kg
[~2017-10-18 20:11] MED LIST: ATOR40TA PO; BISA10SU8 RC; BUME1TAB4 PO; CARV12.52 PO; CEPH250C PO; CINA30TA PO; CLON0.1T PO; DIPH-873 PO; DONE10TA44 PO; FLUC100T8 PO; FOLI0.8T2 PO; HYDR-4077 PO; INSU100V3 SQ; INSU3INS6 SQ; LORA1TAB PO; MAGN400O6 PO; NA P133E RC; NIFE60TA69 PO; OMEP20CA10 PO; ONDA4TAB5 PO; SERT25TA PO; [UNRECOGNIZED DRUG - CODE] PO
[2017-10-18] MEDS ORDERED: VANCOMYCIN 1 GM VIAL ONE (20:57)
[2017-10-18] MEDS ORDERED: PIPERACILLIN /TAZOBACTAM 3.375 G VIAL IV ONE (20:57)
[2017-10-18 21:00] LABS: BASOPHILS # (AUTO) 0.4 /CMM (0.0-0.2); BASOPHILS % (AUTO) 4.6 % (0.0-2.0); EOSINOPHILS # (AUTO) 0.2 /CMM (0.0-0.7); EOSINOPHILS % (AUTO) 1.9 % (0.0-6.0); HEMATOCRIT 37 % (33-45); HEMOGLOBIN 12.3 g/dL (11.5-14.8); LYMPHOCYTES # (AUTO) 1.3 /CMM (0.8-4.8); LYMPHOCYTES % (AUTO) 13.8 % (20.0-44.0); MEAN CORPUSCULAR HEMOGLOBIN 32 PG (26.0-33.0); MEAN CORPUSCULAR HGB CONC 33 g/dl (31.0-36.0); MEAN CORPUSCULAR VOLUME 95 fL (82-100); MONOCYTES # (AUTO) 1.3 /CMM (0.1-1.30); MONOCYTES % (AUTO) 14.2 % (2.0-12.0); NEUTROPHILS # (AUTO) 6.3 /CMM (1.8-8.9); NEUTROPHILS % (AUTO) 65.5 % (43.0-81.0); PLATELET COUNT (AUTO) 398 /CMM (150-450); RDW COEFFICIENT OF VARIATION 17.6 (11.5-15.0); RED BLOOD CELL COUNT(AUTO) 3.86 MIL/uL (4.0-5.2); WHITE BLOOD COUNT (AUTO) 9.5 K/uL (4.3-11.0)
[2017-10-18] MEDS ORDERED: PIPERACILLIN /TAZOBACTAM 3.375 G in IV D5W 50 ML IV ONE (21:00)
[2017-10-18] MEDS ORDERED: VANCOMYCIN 1 GM in IV D5W 250 ML IV ONE (21:00)
[2017-10-18 21:16] LABS: INR 1.09 (0.87-1.13); PROTHROMBIN TIME 11.3 SECS (9.5-12.7)
[2017-10-18 21:18] LABS: ALANINE AMINOTRANSFERASE 14 U/L (12-78); ALBUMIN 2.6 g/dL (3.4-5.0); ALKALINE PHOSPHATASE 129 U/L (46-116); ASPARTATE AMINOTRANSFERASE 28 U/L (15-37); BILIRUBIN,DIRECT 0.3 mg/dL (0.0-0.2); BILIRUBIN,TOTAL 0.7 mg/dL (0.2-1.0); CALCIUM, SERUM 9.3 mg/dL (8.5-10.1); CARBON DIOXIDE 28 mmol/L (21-32); CHLORIDE 93 mmol/L (98-107); CREATININE 5.1 mg/dL (0.6-1.3); GLUCOSE 133 mg/dL (74-106); POTASSIUM 4.3 mmol/L (3.5-5.1); SODIUM SERUM 131 mmol/L (136-145); TOTAL PROTEIN, SERUM 7.9 g/dL (6.4-8.2); UREA NITROGEN, BLOOD 48 mg/dL (7-18)
[2017-10-18 21:20] LABS: TROPONIN I < 0.017 ng/mL (0.00-0.056)
[2017-10-18 23:00] VITALS: BP 188/73
[2017-10-18] MEDS ORDERED: ONDANSETRON HCL/PF 4 MG/2 ML VIAL IVP PRN (23:00)
[2017-10-18] MEDS ORDERED: HYDROCODONE/APAP 5/325MG 1 EACH TABLET PO PRN (23:00)
[2017-10-18] MEDS ORDERED: MAGNESIUM HYDROXIDE 30 ML UDC PO PRN (23:00)
[2017-10-18] MEDS ORDERED: ENOXAPARIN SODIUM 30 MG/0.3 ML DISP.SYRIN SQ SCH (23:00)
[2017-10-18] MEDS ORDERED: MAG HYDROX/AL HYDROX/SIMETH 30 ML UDC PO PRN (23:00)
[2017-10-18] MEDS ORDERED: Z GUARD REMEDY 2 OZ OINT TP PRN (23:00)
[2017-10-18] MEDS ORDERED: ENOXAPARIN SODIUM 30 MG/0.3 ML DISP.SYRIN ONE (23:40)
[2017-10-18] MEDS ORDERED: CEFTRIAXONE 1 G VIAL ONE (23:40)
[2017-10-18] MEDS ORDERED: hydrALAZINE HCL 25 MG TABLET ONE (23:41)
[2017-10-18] MEDS ORDERED: HYDROCODONE/APAP 5/325MG 1 EACH TABLET ONE (23:42)
[2017-10-18] MEDS: CEFTRIAXONE 1 G in IV D5W 50 ML IV SCH (23:47)
[2017-10-18] MEDS: hydrALAZINE HCL 25 MG TABLET PO SCH (23:47)
[2017-10-19] VITALS: BP 160/70
[2017-10-19 03:11] LABS: BASOPHILS % (AUTO) 0.5 % (0.0-2.0); EOSINOPHILS # (AUTO) 0.2 /CMM (0.0-0.7); EOSINOPHILS % (AUTO) 2.8 % (0.0-6.0); HEMATOCRIT 35 % (33-45); HEMOGLOBIN 11.6 g/dL (11.5-14.8); LYMPHOCYTES # (AUTO) 1.3 /CMM (0.8-4.8); LYMPHOCYTES % (AUTO) 14.6 % (20.0-44.0); MEAN CORPUSCULAR HEMOGLOBIN 32 PG (26.0-33.0); MEAN CORPUSCULAR HGB CONC 33 g/dl (31.0-36.0); MEAN CORPUSCULAR VOLUME 97 fL (82-100); MONOCYTES # (AUTO) 1.4 /CMM (0.1-1.30); NEUTROPHILS # (AUTO) 5.8 /CMM (1.8-8.9); NEUTROPHILS % (AUTO) 66.1 % (43.0-81.0); PLATELET COUNT (AUTO) 341 /CMM (150-450); RDW COEFFICIENT OF VARIATION 18.2 (11.5-15.0); RED BLOOD CELL COUNT(AUTO) 3.58 MIL/uL (4.0-5.2); WHITE BLOOD COUNT (AUTO) 8.8 K/uL (4.3-11.0)
[2017-10-19 03:36] LABS: CHOLESTEROL 109 mg/dL (<200); HDL CHOLESTEROL 57 mg/dL (40-60); LDL 34 mg/dL (0-99); TRIGLYCERIDES 61 mg/dL (30-150)
[2017-10-19 03:45] LABS: ALANINE AMINOTRANSFERASE 19 U/L (12-78); ALBUMIN 2.3 g/dL (3.4-5.0); ALKALINE PHOSPHATASE 119 U/L (46-116); ASPARTATE AMINOTRANSFERASE 23 U/L (15-37); BILIRUBIN,TOTAL 0.7 mg/dL (0.2-1.0); CALCIUM, SERUM 9.2 mg/dL (8.5-10.1); CARBON DIOXIDE 28 mmol/L (21-32); CHLORIDE 96 mmol/L (98-107); CREATININE 5.4 mg/dL (0.6-1.3); GLUCOSE 176 mg/dL (74-106); MAGNESIUM 1.7 mg/dL (1.8-2.4); PHOSPHORUS 4.9 mg/dL (2.5-4.9); POTASSIUM 4.1 mmol/L (3.5-5.1); SODIUM SERUM 133 mmol/L (136-145); TOTAL PROTEIN, SERUM 7.2 g/dL (6.4-8.2); UREA NITROGEN, BLOOD 50 mg/dL (7-18)
[2017-10-19 04:31] LABS: B-TYPE NATRIURETIC PEPTIDE 94408 PG/ML (0-125)
[2017-10-19 05:01] LABS: EOSINOPHILS % (MANUAL) 1 % (0-4); LYMPHOCYTES % (MANUAL) 16 % (16-48); MONOCYTES % (MANUAL) 13 % (0-11.0); NEUTROPHILS % (MANUAL) 70 (42-76)
[2017-10-19] MEDS ORDERED: ACETAMINOPHEN 325 MG TABLET ONE (05:18)
[2017-10-19] MEDS ORDERED: hydrALAZINE HCL 25 MG TABLET ONE (05:27)
[2017-10-19] MEDS: hydrALAZINE HCL 25 MG TABLET PO SCH ×3 (05:29→20:33)
[2017-10-19] MEDS: ACETAMINOPHEN 325 MG TABLET PO PRN (05:30)
[2017-10-19] MEDS ORDERED: BENZ0.5T3 PO (07:45)
[2017-10-19] MEDS ORDERED: ZOLP5TAB2 PO (07:45)
[2017-10-19] MEDS ORDERED: LOSA25TA13 PO (07:45)
[2017-10-19] MEDS ORDERED: BLOO-668 IN (07:48)
[2017-10-19] MEDS ORDERED: EPOE1VIA7 SQ (07:48)
[2017-10-19 08:00] VITALS: BP 143/57
[2017-10-19] MEDS ORDERED: FEE PK DOSING 1 MIN EA MC ONE (08:05)
[2017-10-19] MEDS ORDERED: VANCOMYCIN 500 MG in IV D5W 100 ML IV PRN (08:30)
[2017-10-19] MEDS ORDERED: DEXTROSE 50%-WATER 50 ML DISP.SYRIN IV PRN (10:30)
[2017-10-19] MEDS ORDERED: HYDROGEL DRESSING 90 GM TUBE TP PRN (10:30)
[2017-10-19] MEDS: HYDROGEL DRESSING 90 GM TUBE TP SCH (10:30)
[2017-10-19] MEDS: diphenhydrAMINE HCL 50 MG CAPSULE PO SCH ×2 (11:23→18:45)
[2017-10-19] MEDS: BLOOD SUGAR DIAGNOSTIC 1 EACH STRIP IN SCH ×3 (12:16→22:22)
[2017-10-19] MEDS: INSULIN REGULAR, HUMAN 100 UNIT/ML 3 ML VIAL SQ PRN ×3 (12:21→22:25)
[2017-10-19 15:48] VITALS: BP 186/78
[2017-10-19] MEDS ORDERED: hydrALAZINE HCL 50 MG TABLET PO STA (16:00)
[2017-10-19] MEDS: predniSONE 20 MG TABLET PO SCH (16:12)
[2017-10-19 20:00] VITALS: BP 151/20
[2017-10-19] MEDS: HEPARIN SODIUM, PORCINE 5000 UNITS/1 ML VIAL SQ SCH (20:34)
[2017-10-19] MEDS: ZOLPIDEM TARTRATE 5 MG TABLET PO PRN (23:37)
[2017-10-19] MEDS: CEFTRIAXONE 1 G in IV D5W 50 ML IV SCH (23:38)
[2017-10-20] MEDS: diphenhydrAMINE HCL 50 MG CAPSULE PO SCH ×3 (02:00→18:07)
[2017-10-20] MEDS: hydrALAZINE HCL 25 MG TABLET PO SCH ×3 (04:37→21:03)
[2017-10-20] MEDS: BLOOD SUGAR DIAGNOSTIC 1 EACH STRIP IN SCH ×4 (06:35→21:21)
[2017-10-20 08:00] VITALS: BP 184/84
[2017-10-20 08:02] LABS: CALCIUM, SERUM 9.4 mg/dL (8.5-10.1); CHLORIDE 94 mmol/L (98-107); CREATININE 4.5 mg/dL (0.6-1.3); GLUCOSE 129 mg/dL (74-106); POTASSIUM 4.9 mmol/L (3.5-5.1); SODIUM SERUM 133 mmol/L (136-145); UREA NITROGEN, BLOOD 37 mg/dL (7-18)
[2017-10-20 08:15] LABS: CARBON DIOXIDE 25 mmol/L (21-32)
[2017-10-20] MEDS: predniSONE 20 MG TABLET PO SCH (08:21)
[2017-10-20] MEDS: HYDROGEL DRESSING 90 GM TUBE TP SCH (08:21)
[2017-10-20] MEDS: HEPARIN SODIUM, PORCINE 5000 UNITS/1 ML VIAL SQ SCH ×2 (08:23→21:07)
[2017-10-20] MEDS ORDERED: TERAZOSIN HCL 1 MG CAPSULE PO SCH (09:00)
[2017-10-20] MEDS ORDERED: VITAMINS A AND D 56.7 GM TUBE TP PRN (10:30)
[2017-10-20] MEDS: INSULIN REGULAR, HUMAN 100 UNIT/ML 3 ML VIAL SQ PRN ×3 (12:01→21:19)
[2017-10-20 16:00] VITALS: BP 184/55
[2017-10-20] MEDS: CLONIDINE HCL 0.1 MG TABLET PO PRN (17:26)
[2017-10-20] MEDS: LACTOBACILLUS RHAMNOSUS GG 1 EACH CAP.SPRINK PO SCH (17:26)
[2017-10-20 20:00] VITALS: BP 142/97
[2017-10-20] MEDS: ZOLPIDEM TARTRATE 5 MG TABLET PO PRN (22:30)
[2017-10-20] MEDS: CEFTRIAXONE 1 G in IV D5W 50 ML IV SCH (22:30)
[2017-10-21 04:00] VITALS: BP 151/54
[2017-10-21] MEDS: hydrALAZINE HCL 25 MG TABLET PO SCH ×3 (04:06→20:49)
[2017-10-21] MEDS: diphenhydrAMINE HCL 50 MG CAPSULE PO SCH ×3 (04:07→19:45)
[2017-10-21] MEDS: BLOOD SUGAR DIAGNOSTIC 1 EACH STRIP IN SCH ×4 (06:34→22:31)
[2017-10-21 07:10] LABS: BASOPHILS % (AUTO) 0.4 % (0.0-2.0); EOSINOPHILS # (AUTO) 0.2 /CMM (0.0-0.7); EOSINOPHILS % (AUTO) 3.3 % (0.0-6.0); HEMATOCRIT 33 % (33-45); HEMOGLOBIN 10.8 g/dL (11.5-14.8); LYMPHOCYTES % (AUTO) 16.2 % (20.0-44.0); MEAN CORPUSCULAR HEMOGLOBIN 32 PG (26.0-33.0); MEAN CORPUSCULAR HGB CONC 33 g/dl (31.0-36.0); MEAN CORPUSCULAR VOLUME 97 fL (82-100); MONOCYTES # (AUTO) 0.8 /CMM (0.1-1.30); MONOCYTES % (AUTO) 13.3 % (2.0-12.0); NEUTROPHILS # (AUTO) 4.2 /CMM (1.8-8.9); NEUTROPHILS % (AUTO) 66.8 % (43.0-81.0); PLATELET COUNT (AUTO) 281 /CMM (150-450); RDW COEFFICIENT OF VARIATION 18.6 (11.5-15.0); RED BLOOD CELL COUNT(AUTO) 3.37 MIL/uL (4.0-5.2); WHITE BLOOD COUNT (AUTO) 6.3 K/uL (4.3-11.0)
[2017-10-21 07:37] LABS: CALCIUM, SERUM 9.3 mg/dL (8.5-10.1); CARBON DIOXIDE 27 mmol/L (21-32); CHLORIDE 95 mmol/L (98-107); CREATININE 5.3 mg/dL (0.6-1.3); GLUCOSE 85 mg/dL (74-106); POTASSIUM 5.2 mmol/L (3.5-5.1); SODIUM SERUM 133 mmol/L (136-145); UREA NITROGEN, BLOOD 46 mg/dL (7-18); VANCOMYCIN,TROUGH 24 ug/ml (12-20)
[2017-10-21 08:00] VITALS: BP 165/75
[2017-10-21] MEDS: LACTOBACILLUS RHAMNOSUS GG 1 EACH CAP.SPRINK PO SCH ×2 (08:22→17:23)
[2017-10-21] MEDS: predniSONE 20 MG TABLET PO SCH (08:22)
[2017-10-21] MEDS: HEPARIN SODIUM, PORCINE 5000 UNITS/1 ML VIAL SQ SCH ×2 (08:23→20:49)
[2017-10-21] MEDS: ACETAMINOPHEN 325 MG TABLET PO PRN (15:24)
[2017-10-21 16:00] VITALS: BP 166/85
[2017-10-21] MEDS: INSULIN REGULAR, HUMAN 100 UNIT/ML 3 ML VIAL SQ PRN ×2 (17:30→21:45)
[2017-10-21 20:00] VITALS: BP 156/67
[2017-10-21] MEDS: ZOLPIDEM TARTRATE 5 MG TABLET PO PRN (21:48)
[2017-10-21] MEDS: CEFTRIAXONE 1 G in IV D5W 50 ML IV SCH (23:33)
[2017-10-22] MEDS: diphenhydrAMINE HCL 50 MG CAPSULE PO SCH ×3 (04:00→18:00)
[2017-10-22] MEDS: hydrALAZINE HCL 25 MG TABLET PO SCH ×3 (04:06→20:39)
[2017-10-22] MEDS: BLOOD SUGAR DIAGNOSTIC 1 EACH STRIP IN SCH ×4 (06:25→21:57)
[2017-10-22 06:35] LABS: CARBON DIOXIDE 30 mmol/L (21-32); CHLORIDE 97 mmol/L (98-107); CREATININE 4.2 mg/dL (0.6-1.3); GLUCOSE 118 mg/dL (74-106); POTASSIUM 4.6 mmol/L (3.5-5.1); SODIUM SERUM 135 mmol/L (136-145); UREA NITROGEN, BLOOD 33 mg/dL (7-18)
[2017-10-22 08:00] VITALS: BP 172/74
[2017-10-22] MEDS: LACTOBACILLUS RHAMNOSUS GG 1 EACH CAP.SPRINK PO SCH ×2 (09:59→17:56)
[2017-10-22] MEDS: predniSONE 20 MG TABLET PO SCH (09:59)
[2017-10-22] MEDS: HEPARIN SODIUM, PORCINE 5000 UNITS/1 ML VIAL SQ SCH ×2 (10:01→20:43)
[2017-10-22 16:00] VITALS: BP 177/74
[2017-10-22] MEDS: INSULIN REGULAR, HUMAN 100 UNIT/ML 3 ML VIAL SQ PRN ×2 (17:57→22:05)
[2017-10-22 20:00] VITALS: BP 196/72
[2017-10-22 21:00] VITALS: BP 153/68
[2017-10-22] MEDS: ZOLPIDEM TARTRATE 5 MG TABLET PO PRN (22:05)
[2017-10-22] MEDS: CEFTRIAXONE 1 G in IV D5W 50 ML IV SCH (22:05)
[2017-10-23] MEDS: diphenhydrAMINE HCL 50 MG CAPSULE PO SCH ×3 (02:58→20:34)
[2017-10-23] MEDS: hydrALAZINE HCL 25 MG TABLET PO SCH ×3 (05:38→20:23)
[2017-10-23] MEDS: BLOOD SUGAR DIAGNOSTIC 1 EACH STRIP IN SCH ×4 (06:04→20:35)
[2017-10-23 07:39] LABS: BASOPHILS # (AUTO) 0.1 /CMM (0.0-0.2); EOSINOPHILS # (AUTO) 0.3 /CMM (0.0-0.7); EOSINOPHILS % (AUTO) 5.7 % (0.0-6.0); HEMATOCRIT 35 % (33-45); HEMOGLOBIN 11.3 g/dL (11.5-14.8); LYMPHOCYTES % (AUTO) 17.8 % (20.0-44.0); MEAN CORPUSCULAR HEMOGLOBIN 32 PG (26.0-33.0); MEAN CORPUSCULAR HGB CONC 33 g/dl (31.0-36.0); MEAN CORPUSCULAR VOLUME 97 fL (82-100); MONOCYTES # (AUTO) 0.8 /CMM (0.1-1.30); MONOCYTES % (AUTO) 13.1 % (2.0-12.0); NEUTROPHILS # (AUTO) 3.6 /CMM (1.8-8.9); NEUTROPHILS % (AUTO) 62.4 % (43.0-81.0); PLATELET COUNT (AUTO) 269 /CMM (150-450); RDW COEFFICIENT OF VARIATION 17.9 (11.5-15.0); RED BLOOD CELL COUNT(AUTO) 3.55 MIL/uL (4.0-5.2); WHITE BLOOD COUNT (AUTO) 5.8 K/uL (4.3-11.0)
[2017-10-23 07:53] LABS: CALCIUM, SERUM 9.2 mg/dL (8.5-10.1); CARBON DIOXIDE 28 mmol/L (21-32); CHLORIDE 96 mmol/L (98-107); CREATININE 5.2 mg/dL (0.6-1.3); GLUCOSE 120 mg/dL (74-106); MAGNESIUM 2.2 mg/dL (1.8-2.4); POTASSIUM 4.4 mmol/L (3.5-5.1); SODIUM SERUM 135 mmol/L (136-145); UREA NITROGEN, BLOOD 42 mg/dL (7-18)
[2017-10-23 08:00] VITALS: BP 157/50
[2017-10-23] MEDS: predniSONE 20 MG TABLET PO SCH (09:22)
[2017-10-23] MEDS: LACTOBACILLUS RHAMNOSUS GG 1 EACH CAP.SPRINK PO SCH ×2 (09:23→20:34)
[2017-10-23] MEDS: HEPARIN SODIUM, PORCINE 5000 UNITS/1 ML VIAL SQ SCH ×2 (09:26→20:21)
[2017-10-23] MEDS ORDERED: VANC500F2 IV (10:58)
[2017-10-23] MEDS: INSULIN REGULAR, HUMAN 100 UNIT/ML 3 ML VIAL SQ PRN ×3 (14:23→20:40)
[2017-10-23 16:00] VITALS: BP 197/90
[2017-10-23] MEDS: CLONIDINE HCL 0.1 MG TABLET PO PRN (16:23)
[2017-10-23 20:23] VITALS: BP 175/61
== END 2017-10-23 21:52 | DRG 602 ==
LOC: ER 20:13 → MED 22:06
PROVIDERS: ADMIT Internal Medicine; ATTEND Internal Medicine
PROC: 5A1D70Z Performance of Urinary Filtration, Intermittent, Less than 6 Hours Per Day (ICD-10-PCS; principal; 2017-10-19)
DX: L03.114 Cellulitis of left upper limb (principal); N18.6 End stage renal disease; G93.41 Metabolic encephalopathy; L89.159 Pressure ulcer of sacral region, unspecified stage; I12.0 Hypertensive chronic kidney disease with stage 5 chronic kidney disease or end stage renal disease; E11.22 Type 2 diabetes mellitus with diabetic chronic kidney disease; D63.8 Anemia in other chronic diseases classified elsewhere; E87.1 Hypo-osmolality and hyponatremia; B86 Scabies; F03.90 Unspecified dementia, unspecified severity, without behavioral disturbance, psychotic disturbance, mood disturbance, and anxiety; K21.9 Gastro-esophageal reflux disease without esophagitis; Z99.2 Dependence on renal dialysis; Z79.899 Other long term (current) drug therapy; F41.9 Anxiety disorder, unspecified; Z88.6 Allergy status to analgesic agent; Z88.7 Allergy status to serum and vaccine; Z88.8 Allergy status to other drugs, medicaments and biological substances; E78.5 Hyperlipidemia, unspecified; K59.00 Constipation, unspecified; L29.9 Pruritus, unspecified
CPT/HCPCS: 36415; 71010-TC; 80048-TC; 80053-TC; 80061-TC; 80076-TC; 80202-TC; 82962-TC; 83605-TC; 83735-TC; 83880; 84100-TC; 84484-TC; 85025-TC; 85730-TC; 87040-TC; 87081-TC; 90935-TC; 93971-TC; A4606; A6248; A6402; J0696; J1644; J1650; J1815; J2543; J3370; J7050; J7060; Q0163; Z7610

== ENCOUNTER 2017-12-28 00:07 | Inpatient (IN) | payer MEDICARE, OTHER ==
[2017-12-28] VITALS (20 sets, daily range): BP systolic 91–151; BP diastolic 16–101
[~2017-12-28] VITALS: Ht 154.9 cm; Wt 70.3 kg
[~2017-12-28 00:07] MED LIST changes: +BENZ0.5T3 PO; +BLOO-668 IN; -CARV12.52 PO; -CEPH250C PO; -CINA30TA PO; -CLON0.1T PO; -DIPH-873 PO; +EPOE1VIA7 SQ; -FLUC100T8 PO; -INSU3INS6 SQ; +LOSA25TA13 PO; -NIFE60TA69 PO; -OMEP20CA10 PO; -SERT25TA PO; +VANC500F2 IV; +ZOLP5TAB2 PO
--- NOTE | 2017-12-28 00:10 | NUR ---
PT BIBA FROM [facility] FOR LOW H AND H. PT SPEAKS BURKINAN ONLY. PT IS AAOX4. RESP EVEN AND NONE LABORED. NO S/S OF ACUTE DISTRESS NOTED. VSS. PT GOWNED AND PLACED ON MONITOR AND POX. REDNESS/SWELLING NOTED OF THE L EXTREMITY. DIALYSIS SHUNTS NOTED ON BOTH UPPER EXTREMITIES. BRUTI AND THRILL PRESENT ON BOTH EXTREMITIES. AWAITING MD NASSAR.
[2017-12-28] MEDS ORDERED: VANCOMYCIN 1 GM in IV D5W 250 ML IV ONE (00:30)
--- NOTE | 2017-12-28 01:04 | NUR ---
PER MD, IV SITE ON THE R FOREARM WAS PERMITED. 18G L FOREARM WAS ESTABLISHED.
[2017-12-28] MEDS ORDERED: VANCOMYCIN 1 GM VIAL ONE (01:06)
[2017-12-28 01:22] LABS: BASOPHILS # (AUTO) 0.1 /CMM (0.0-0.2); BASOPHILS % (AUTO) 0.6 % (0.0-2.0); EOSINOPHILS # (AUTO) 1.2 /CMM (0.0-0.7); EOSINOPHILS % (AUTO) 11.9 % (0.0-6.0); LYMPHOCYTES % (AUTO) 9.8 % (20.0-44.0); MEAN CORPUSCULAR HEMOGLOBIN 34 PG (26.0-33.0); MEAN CORPUSCULAR HGB CONC 34 g/dl (31.0-36.0); MEAN CORPUSCULAR VOLUME 98 fL (82-100); MONOCYTES # (AUTO) 1.1 /CMM (0.1-1.30); MONOCYTES % (AUTO) 11.4 % (2.0-12.0); NEUTROPHILS # (AUTO) 6.6 /CMM (1.8-8.9); NEUTROPHILS % (AUTO) 66.3 % (43.0-81.0); PLATELET COUNT (AUTO) 290 /CMM (150-450); RDW COEFFICIENT OF VARIATION 16.2 (11.5-15.0); WHITE BLOOD COUNT (AUTO) 9.9 K/uL (4.3-11.0)
[2017-12-28 01:24] LABS: HEMATOCRIT 20 % (33-45); HEMOGLOBIN 6.7 g/dL (11.5-14.8); RED BLOOD CELL COUNT(AUTO) 1.99 MIL/uL (4.0-5.2)
[2017-12-28 01:29] LABS: CALCIUM, SERUM 8.9 mg/dL (8.5-10.1); CARBON DIOXIDE 35 mmol/L (21-32); CHLORIDE 100 mmol/L (98-107); CREATININE 2.4 mg/dL (0.6-1.3); GLUCOSE 59 mg/dL (74-106); POTASSIUM 3.6 mmol/L (3.5-5.1); SODIUM SERUM 139 mmol/L (136-145); UREA NITROGEN, BLOOD 19 mg/dL (7-18)
[2017-12-28 01:35] LABS: ALANINE AMINOTRANSFERASE 13 U/L (12-78); ALBUMIN 2.5 g/dL (3.4-5.0); ALKALINE PHOSPHATASE 101 U/L (46-116); ASPARTATE AMINOTRANSFERASE 21 U/L (15-37); BILIRUBIN,DIRECT 0.2 mg/dL (0.0-0.2); BILIRUBIN,TOTAL 0.4 mg/dL (0.2-1.0); TOTAL PROTEIN, SERUM 6.9 g/dL (6.4-8.2)
--- NOTE | 2017-12-28 01:45 | NUR ---
OCEAN EXPORT ACCOUNT MANAGER BEDSIDE
[2017-12-28 01:48] LABS: INR 1.15 (0.87-1.13)
--- NOTE | 2017-12-28 01:51 | NUR ---
BEDSIDE FOR OCCULT BLOOD EXAM.
[2017-12-28 01:54] LABS: EOSINOPHILS % (MANUAL) 8 % (0-4); LYMPHOCYTES % (MANUAL) 13 % (16-48); MONOCYTES % (MANUAL) 10 % (0-11.0); NEUTROPHILS % (MANUAL) 69 (42-76)
--- NOTE | 2017-12-28 02:07 | NUR ---
UNABLE TO OBTAIN URINE AT THIS TIME. PER WALI DAIGLE TO GIVE VANCO IVPB.
[2017-12-28] MEDS ORDERED: LORAZEPAM INJ 2 MG/ML VIAL ONE (02:11)
[2017-12-28] MEDS ORDERED: LORAZEPAM INJ 2 MG/ML VIAL IV ONE (02:30)
--- NOTE | 2017-12-28 02:38 | NUR ---
Patient is resting comfortably in bed with eyes closed. Easily aroused. VSS
--- NOTE | 2017-12-28 03:25 | NUR ---
gave report to rn telephonic ala for stephen. pt transported by acls protocol.
[2017-12-28] MEDS ORDERED: GELATIN SPONGE,ABSORBABLE 1 SPONGE SPONGE TP ONE (03:49)
--- NOTE | 2017-12-28 04:00 | NUR ---
RN OPENING NOTES RECEIVED PATIENT FROM ER, ZIMBABWEAN SPEAKING, ALERT AND ORIENTED X2. PATIENT WAS ADMITTED WITH LOW H AND H. NO PAIN OR DISCOMFORT NOTED. RESPIRATIONS EVEN AND UNLABORED. NO SOB NOTED. IV ACCESS ON R FA 18 G PATENT AND INTACT, NO REDNESS OR INFILTRATION NOTED. SHUNT STARTED TO BLEED. PUT 4X 4 AND KERLIX TO PREVENT BLEEDING. PATIENT IS STABLE. WAITING FOR MD ORDERS. BED IN LOW AND LOCKED POSITION, SIDE RAILS X2. CALL LIGHT WITHIN EASY REACH. WILL CONTINUE TO MONITOR AND ASSESS DURING THE SHIFT.
--- NOTE | 2017-12-28 04:15 | NUR ---
RN NOTES CALLED DR. FENG REGARDING ADMITTING ORDERS.
[2017-12-28] MEDS ORDERED: BISACODYL SUPP (10 MG) 10 MG/SUPP.RECT SUPP.RECT RC PRN (06:30)
[2017-12-28] MEDS ORDERED: Medication Not On Formulary EA (Ondansetron Hcl (Zofran) 4 MG) PO PRN (06:30)
[2017-12-28] MEDS ORDERED: ZOLPIDEM TARTRATE 5 MG TABLET PO PRN (06:30)
[2017-12-28] MEDS ORDERED: MORPHINE SULFATE INJ 2 MG/ML DISP.SYRIN IV PRN (07:00)
[2017-12-28] MEDS ORDERED: ALBUTEROL FS 2.5 MG/3 ML VIAL.NEB NEB PRN (07:00)
[2017-12-28] MEDS ORDERED: ONDANSETRON HCL/PF 4 MG/2 ML VIAL IVP PRN (07:00)
[2017-12-28] MEDS: LORAZEPAM 1 MG TABLET PO PRN ×2 (07:10→12:08)
[2017-12-28] MEDS ORDERED: FEE PK DOSING 1 MIN EA MC ONE (07:20)
--- NOTE | 2017-12-28 07:30 | NUR ---
PHARMACY ORDER ENTRY TECHNICIAN NOTES PATIENT RECEIVED RESTING INSIDE ROOM, AWAKE, ALERT AND ORIENTED TO SELF, ABLE TO MAKE NEEDS KNOWN BUT WITH DIFFICULTY FOLLOWING INSTRUCTIONS. PATIENT BREATHING EVEN AND UNLABORED. NO SOB OR CONGESTION NOTED AT THIS TIME. PRESSURE DRESSING IN PLACE ON LEFT ARM. NO ACTIVE BLEEDING NOTED AT THIS TIME. PATIENT AFEBRILE, SKIN DRY AND WARM TO TOUCH. NO CHANGES IN LOC NOTED. SITTER AT BEDSIDE. BED LOCKED AND IN LOS POSITION, BILATERAL UPPER SIDE RAILS UP AND LOCKED. CALL LIGHT WITHIN EASY REACH. WILL CONTINUE TO MONITOR
--- NOTE | 2017-12-28 07:30 | NUR ---
RN CLOSING NOTES PATIENT IS IN BED, ANGOLAN SPEAKING, ALERT AND ORIENTED X2. SITTER PRESENT AT BEDSIDE. RESPIRATIONS EVEN AND UNLABORED. NO SOB NOTED. IV ACCESS ON R FA 18 G PATENT AND INTACT, NO REDNESS OR INFILTRATION NOTED. PATIENT IS CONFUSED AND AGITATED. ATIVAN O.5 MG WAS GIVEN PRN. ALL NEEDS ARE MET. BED IN LOW AND LOCKED POSITION, SIDE RAILS X2. CALL LIGHT WITHIN EASY REACH. WILL ENDORSE TO RN DAY SHIFT FOR CECILIA.
[2017-12-28] MEDS: BLOOD SUGAR DIAGNOSTIC 1 EACH STRIP IN SCH ×4 (07:47→22:21)
[2017-12-28] MEDS: PROSOURCE / PROSTAT (PYXIS) 30 ML UDC PO SCH (08:50)
[2017-12-28] MEDS: BENZTROPINE MESYLATE (1 MG) 1 MG TABLET PO SCH (08:50)
[2017-12-28] MEDS: PIPERACILLIN /TAZOBACTAM 2.25 G in IV D5W 50 ML IV SCH ×2 (08:50→17:06)
[2017-12-28] MEDS: PANTOPRAZOLE 40 MG TABLET.DR PO SCH (08:50)
[2017-12-28] MEDS: VIT B CMPLX 3/FA/VIT C/BIOTIN 1 TAB TABLET PO SCH (08:50)
[2017-12-28] MEDS ORDERED: VANCOMYCIN 500 MG in IV D5W 100 ML IV PRN (09:00)
[2017-12-28] MEDS ORDERED: MORPHINE SULFATE INJ 4 MG/ML DISP.SYRIN IV PRN (09:26)
[2017-12-28] MEDS ORDERED: TRAMADOL HCL 50 MG TABLET PO PRN (10:30)
--- NOTE | 2017-12-28 11:45 | NUR ---
MS RN NOTES PATIENT TRANSFERRED TO ROOM 317-1. ASSISTED DURING TRANSFER. NO EPISODE OF FALL OR INJURY DURING TRANSFER. PATIENT KEPT CLEAN, DRY AND COMFORTABLE. WILL CONTINUE TO MONITOR
[2017-12-28] MEDS: BUMETANIDE (1 MG) 1 MG TABLET PO SCH ×2 (12:07→17:00)
[2017-12-28 12:49] LABS: BASOPHILS # (AUTO) 0.1 /CMM (0.0-0.2); BASOPHILS % (AUTO) 0.9 % (0.0-2.0); EOSINOPHILS # (AUTO) 0.7 /CMM (0.0-0.7); EOSINOPHILS % (AUTO) 8.9 % (0.0-6.0); LYMPHOCYTES # (AUTO) 0.7 /CMM (0.8-4.8); LYMPHOCYTES % (AUTO) 9.5 % (20.0-44.0); MEAN CORPUSCULAR HEMOGLOBIN 33 PG (26.0-33.0); MEAN CORPUSCULAR HGB CONC 34 g/dl (31.0-36.0); MEAN CORPUSCULAR VOLUME 98 fL (82-100); MONOCYTES # (AUTO) 0.9 /CMM (0.1-1.30); MONOCYTES % (AUTO) 11.6 % (2.0-12.0); NEUTROPHILS # (AUTO) 5.4 /CMM (1.8-8.9); NEUTROPHILS % (AUTO) 69.1 % (43.0-81.0); PLATELET COUNT (AUTO) 261 /CMM (150-450); RDW COEFFICIENT OF VARIATION 16.4 (11.5-15.0); WHITE BLOOD COUNT (AUTO) 7.9 K/uL (4.3-11.0)
[2017-12-28 12:51] LABS: RED BLOOD CELL COUNT(AUTO) 1.79 MIL/uL (4.0-5.2)
[2017-12-28 12:52] LABS: HEMOGLOBIN 5.9 g/dL (11.5-14.8)
[2017-12-28 12:53] LABS: HEMATOCRIT 18 % (33-45)
[2017-12-28 12:59] LABS: ALANINE AMINOTRANSFERASE 12 U/L (12-78); ALBUMIN 2.2 g/dL (3.4-5.0); ALKALINE PHOSPHATASE 89 U/L (46-116); ASPARTATE AMINOTRANSFERASE 19 U/L (15-37); BILIRUBIN,TOTAL 0.4 mg/dL (0.2-1.0); CALCIUM, SERUM 8.4 mg/dL (8.5-10.1); CARBON DIOXIDE 32 mmol/L (21-32); CHLORIDE 98 mmol/L (98-107); CREATININE 2.6 mg/dL (0.6-1.3); GLUCOSE 198 mg/dL (74-106); MAGNESIUM 1.4 mg/dL (1.8-2.4); PHOSPHORUS 2.9 mg/dL (2.5-4.9); POTASSIUM 3.9 mmol/L (3.5-5.1); SODIUM SERUM 135 mmol/L (136-145); TOTAL PROTEIN, SERUM 6.2 g/dL (6.4-8.2); UREA NITROGEN, BLOOD 21 mg/dL (7-18)
[2017-12-28] MEDS ORDERED: VITAMINS A AND D 56.7 GM TUBE TP PRN (13:00)
[2017-12-28 13:02] LABS: TROPONIN I 0.035 ng/mL (0.00-0.056)
[2017-12-28 13:07] LABS: CHOLESTEROL 92 mg/dL (<200); HDL CHOLESTEROL 54 mg/dL (40-60); LDL 22 mg/dL (0-99); THYROID STIMULATING HORMONE 3.251 uIU/mL (0.358-3.74); TRIGLYCERIDES 54 mg/dL (30-150)
--- NOTE | 2017-12-28 13:15 | NUR ---
RN NOTES CALL RECEIVED FROM LAB REPORTING CRITICAL LAB OF HEMOGLOBIN 5.9 AND HEMATOCRIT OF 18, CALL PLACED TO LAB REQUESTING TO MAYERS PACKED RBC. SECURITY ASSOCIATE STATES WAITING FOR MATCH. CALLED DR. MOBLEY INFORMING OF BLOOD RESULTS ORDERS OBTAINED TO TRANSFER TO ICU, START CENTRAL LINE, GIVE 2 UNITS OF PLASMA ORDERS NOTED AND CARRIED OUT. PATIENT ALERT, ORIENTED X 2 SAUDI ARABIAN SPEAKING CURRENTLY RECEIVING DIALYSIS WILL CONTINUE TO MONITOR CLOSELY.
[2017-12-28 13:30] LABS: EOSINOPHILS % (MANUAL) 5 % (0-4); LYMPHOCYTES % (MANUAL) 7 % (16-48); MONOCYTES % (MANUAL) 5 % (0-11.0); NEUTROPHILS % (MANUAL) 83 (42-76)
[2017-12-28] MEDS ORDERED: ALBUMIN 25% 25 GM in PREMIX 1 EA IV PRN (13:30)
--- NOTE | 2017-12-28 13:30 | NUR ---
RN NOTES REPORT GIVEN TO REMEDIOS RN AT ICU AWAITING FOR DIALYSIS TO END TO TRANSFER PATIENT TO ICU.
--- NOTE | 2017-12-28 14:30 | NUR ---
MS RN NOTES PATIENT RECEIVED DIALYSIS, WITH OUTPUT OF 500 CC. TOLERATED WELL. NO CHANGES IN LOC NOTED. PATIENT REMAINS AFEBRILE, SKIN DRY AND WARM TO TOUCH. NO SOB OR DISTRESS NOTED. PRESSURE DRESSING IN PLACE, NO ACTIVE BLEEDING NOTED. WILL CONTINUE TO MONITOR
--- NOTE | 2017-12-28 15:00 | NUR ---
MS RN NOTES PATIENT TRANSFERRED TO ICU, BED 254. PATIENT TOLERATED TRANSFER WELL. NO CHANGES IN LOC NOTED. NO SOB OR ACUTE DISTRESS NOTED. REPORT GIVEN TO JULIET POLO.
--- NOTE | 2017-12-28 15:26 | NUR ---
SALES REPRESENTATIVE GAS SERVICE NOTE 1500: Received patient from [facility] for anemia, blood transfusion. With order for Central line insertion, aware. Per CN, ER or Jan ANIMAL CRUELTY INVESTIGATOR will come to do central line insertion. Spoke with Katy, daughter and given consent for CL insertion via phone, witnessed by another nurse. All questions and questions were answered. No active bleeding noted at this time. Awaiting for line. With 1:1 sitter at bedside. Noted patient confused and lethargic. Bhutanese speaking. NO S/S discomfort at this time. SFR 90's, 100% O2 sat on room air.
[2017-12-28] MEDS ORDERED: HYDROMORPHONE INJ 0.5 MG/0.5 ML SYRINGE IV PRN (15:30)
--- NOTE | 2017-12-28 17:00 | NUR ---
GAS PUMPING STATION HELPER NOTE Followed up with pharmacy re: Alma, said no need to give after HD today, patient received Vanco in ER.
[2017-12-28 17:16] LABS: BASOPHILS % (AUTO) 0.5 % (0.0-2.0); EOSINOPHILS # (AUTO) 0.7 /CMM (0.0-0.7); EOSINOPHILS % (AUTO) 8.5 % (0.0-6.0); LYMPHOCYTES # (AUTO) 0.8 /CMM (0.8-4.8); LYMPHOCYTES % (AUTO) 9.4 % (20.0-44.0); MEAN CORPUSCULAR HEMOGLOBIN 33 PG (26.0-33.0); MEAN CORPUSCULAR HGB CONC 34 g/dl (31.0-36.0); MEAN CORPUSCULAR VOLUME 98 fL (82-100); MONOCYTES # (AUTO) 1.1 /CMM (0.1-1.30); MONOCYTES % (AUTO) 14.1 % (2.0-12.0); NEUTROPHILS # (AUTO) 5.5 /CMM (1.8-8.9); NEUTROPHILS % (AUTO) 67.5 % (43.0-81.0); PLATELET COUNT (AUTO) 248 /CMM (150-450); RDW COEFFICIENT OF VARIATION 16.4 (11.5-15.0); WHITE BLOOD COUNT (AUTO) 8.1 K/uL (4.3-11.0)
[2017-12-28 17:22] LABS: RED BLOOD CELL COUNT(AUTO) 1.79 MIL/uL (4.0-5.2)
[2017-12-28 17:26] LABS: HEMATOCRIT 18 % (33-45)
--- NOTE | 2017-12-28 17:41 | NUR ---
TRAVELING REPRESENTATIVE NOTE 1630: Dr Canales from ER placed right femoral TLC. Called Katy and made aware as requested by her. 1700: Unable to find blood bank wrist band, made blood bank aware, said we have to reorder T&S. MAde Dr. Armstrong aware for the incident. No active bleeding at this time. 1730: Awaiting blood bank fro blood products. Addendum: 12/28/17 at 1747 by DEYSI BAHENA RN Per 1:1 sitter, visitor/granddaughter may have thrown in the trash. Unable to find.
--- NOTE | 2017-12-28 18:35 | NUR ---
Patient resides at [facility] [phone]. Patient requires assistance with adl's. She gets HD 3x/week q TTHS at [facility] [phone]. Current plan is to return to SNF once discharge. Addendum: 12/28/17 at 1835 by FELIX LOMBARDI RN Amended: Links added.
--- NOTE | 2017-12-28 19:04 | NUR ---
CAR GREASER NOTE Followed up with blood products in blood bank, still not ready. Endorsed to next shift, Libia RN for CECILIA. No any significant changes noted at this time. Kept clean, warm and dry. Needs attended. Kept call light at reach. No episode of trying to get out of bed. Bed alarm on.
--- NOTE | 2017-12-28 19:29 | NUR ---
agricultural purchasing agent. initial assessment. received the pt rest on the bed, PT IS SLEEPING AT THIS TIME, PT IS ROOM AIR. SAT 100%. SLICE CUTTING MACHINE OPERATOR HELPER SHOWING NSR. IV RT FEMORAL TRIPLE LUMEN ,RT HAND AV FISTULA. HOB ELEVATED. WILL CONTINUE TO MONITOR VITALS.
--- NOTE | 2017-12-28 20:48 | NUR ---
BARTACKER. 1 UNIT FFB STARTED. DURING TRANSFUSION NO COMPLICATION NOTED. WILL CONTINUE TO MONITOR.
--- NOTE | 2017-12-28 21:00 | NUR ---
SUPERVISOR ENGINE REPAIR. 1ST UNIT FFP FINISHED, DURING TRANSFUSION NO COMPLICATION NOTED. 2ND UNIT FFP STARTED.
--- NOTE | 2017-12-28 22:00 | NUR ---
FUSING MACHINE FEEDER. PT IS CONFUSED, AGITATED. GETTING OUT OF BED. CENTRAL LINE PULLED OUT.IV RT EJ 20G INSERTED. GAIL SOFT WRIST RESTRAINT INITIATED.
[2017-12-28] MEDS: DONEPEZIL 5 MG TABLET PO SCH (22:20)
--- NOTE | 2017-12-28 23:57 | NUR ---
AERONAUTICAL ENGINEERING TEACHER PRBC STARTED.WILL CONTINUE TO MONITOR.
[2017-12-29] VITALS (25 sets, daily range): BP systolic 98–134; BP diastolic 24–79
[2017-12-29] MEDS: PIPERACILLIN /TAZOBACTAM 2.25 G in IV D5W 50 ML IV SCH ×3 (01:01→16:03)
--- NOTE | 2017-12-29 03:11 | NUR ---
PC ANALYST. AM CARE, ORAL CARE BED BATH GIVEN. LINEN CHANGED, .AFEBRILE. HOB ELEVATED, TURN AND REPOSITION Q2H. WILL CONTINUE TO MONITOR VITALS.
--- NOTE | 2017-12-29 03:14 | NUR ---
PINEAPPLE PLANTATION MANAGER. 2UNITS FFP, 1UNIT PRBC,AND 1 UNIT CRYO GIVEN. NO ACTIVE BLEEDING NOTED. WILL CONTINUE TO MONITOR VITALS.
[2017-12-29 05:02] LABS: BASOPHILS % (AUTO) 0.4 % (0.0-2.0); EOSINOPHILS # (AUTO) 1.2 /CMM (0.0-0.7); EOSINOPHILS % (AUTO) 12.4 % (0.0-6.0); HEMATOCRIT 21 % (33-45); HEMOGLOBIN 7.1 g/dL (11.5-14.8); LYMPHOCYTES # (AUTO) 1.2 /CMM (0.8-4.8); LYMPHOCYTES % (AUTO) 12.4 % (20.0-44.0); MEAN CORPUSCULAR HEMOGLOBIN 32 PG (26.0-33.0); MEAN CORPUSCULAR HGB CONC 34 g/dl (31.0-36.0); MEAN CORPUSCULAR VOLUME 96 fL (82-100); MONOCYTES # (AUTO) 1.4 /CMM (0.1-1.30); MONOCYTES % (AUTO) 14.6 % (2.0-12.0); NEUTROPHILS # (AUTO) 5.8 /CMM (1.8-8.9); NEUTROPHILS % (AUTO) 60.2 % (43.0-81.0); PLATELET COUNT (AUTO) 223 /CMM (150-450); RDW COEFFICIENT OF VARIATION 19.5 (11.5-15.0); WHITE BLOOD COUNT (AUTO) 9.6 K/uL (4.3-11.0)
[2017-12-29 05:20] LABS: CALCIUM, SERUM 8.9 mg/dL (8.5-10.1); CARBON DIOXIDE 33 mmol/L (21-32); CHLORIDE 100 mmol/L (98-107); CREATININE 2.5 mg/dL (0.6-1.3); GLUCOSE 209 mg/dL (74-106); MAGNESIUM 1.7 mg/dL (1.8-2.4); PHOSPHORUS 3.1 mg/dL (2.5-4.9); SODIUM SERUM 139 mmol/L (136-145); UREA NITROGEN, BLOOD 18 mg/dL (7-18)
[2017-12-29] MEDS: LORAZEPAM 1 MG TABLET PO PRN (07:15)
[2017-12-29] MEDS: BLOOD SUGAR DIAGNOSTIC 1 EACH STRIP IN SCH ×4 (08:24→21:18)
[2017-12-29] MEDS: VIT B CMPLX 3/FA/VIT C/BIOTIN 1 TAB TABLET PO SCH (08:34)
[2017-12-29] MEDS: BUMETANIDE (1 MG) 1 MG TABLET PO SCH ×3 (08:34→16:03)
[2017-12-29] MEDS: BENZTROPINE MESYLATE (1 MG) 1 MG TABLET PO SCH (08:34)
[2017-12-29] MEDS: PANTOPRAZOLE 40 MG TABLET.DR PO SCH (08:36)
[2017-12-29] MEDS: PROSOURCE / PROSTAT (PYXIS) 30 ML UDC PO SCH (08:37)
[2017-12-29 08:42] LABS: EOSINOPHILS % (MANUAL) 5 % (0-4); LYMPHOCYTES % (MANUAL) 12 % (16-48); MONOCYTES % (MANUAL) 11 % (0-11.0); NEUTROPHILS % (MANUAL) 72 (42-76)
--- NOTE | 2017-12-29 09:30 | NUR ---
D/W DR NAYLOR ALL LABS, BLOOD PRODUCTS, PLAN AND THAT PT HAS CONTINUED MARKED CONFUSION, PULLED OUT CENTRAL LINE AND IS SCREAMING OUT REPEATEDLY AND TRYING TO PULL OFF HD CIRCUIT. PER MD NO MORE BLOOD PRODUCTS TODAY, SEDATE WITH PRN ATIVAN AND RX PRESUMPTIVE PAIN WITH DILAUDID. DAUGHTER INFORMED OF ALL EVENTS AND THAT PT IS IN WRIST RESTRAINTS. DAUGHTER AGREES WITH RESTRAINTS AND WILL BE IN TO SIT WITH HER MOTHER
[2017-12-29] MEDS ORDERED: LORAZEPAM 1 MG TABLET PO PRN (10:00)
[2017-12-29] MEDS ORDERED: QUETIAPINE FUMARATE 25 MG TABLET PO PRN (10:30)
[2017-12-29] MEDS ORDERED: EPOETIN ALFA (10,000 UNIT) 10,000 UNIT/ML VIAL SQ ONE (12:00)
--- NOTE | 2017-12-29 12:00 | NUR ---
PATIENT DIALYSIS COMPLETED AND TOLERATED WELL. 1L REMOVED. BP STABLE. FAMILY AT BEDSIDE -REQUESTED TO REMOVE WRIST RESTRAINTS SINCE THEY ARE THERE TO WATCH PATIENT.
--- NOTE | 2017-12-29 13:30 | NUR ---
PATIENT DAUGHTER STATED PATIENT PULLED OUT IV -NOTED THAT RIGHT EXTERNAL JUGULAR IV PULLED OUT BY PATIENT-NO BLEEDING AT SITE. PATIENT BOTH WRISTRESTRAINTS REAPPLIED.
[2017-12-29] MEDS ORDERED: VANCOMYCIN 1 GM in IV D5W 250 ML IV SCH (14:00)
[2017-12-29] MEDS: QUETIAPINE FUMARATE 25 MG TABLET PO SCH (16:03)
[2017-12-29] MEDS: LACTOBACILLUS RHAMNOSUS GG 1 EACH CAP.SPRINK PO SCH (16:03)
--- NOTE | 2017-12-29 16:30 | NUR ---
PATIENT FOR TRANSFER TO [facility]. REMAINS STABLE. NO SIGNS OF ACTIVE BLEEDING NOTED.
--- NOTE | 2017-12-29 17:00 | NUR ---
PATIENT TO TELE FLOOR. REPOSRT GIVEN TO MELANI JOHNSTON.
--- NOTE | 2017-12-29 17:15 | NUR ---
SHANK SKINNER FROM ICU TO ROOM 323 BED 1. PT. WAS BROUGHT TO ROOM 323-1, FROM ICU. REPORT RECEIVED VIA PHONE BY MELANI CANADA.
[2017-12-29] MEDS ORDERED: DEXTROSE 50%-WATER 50 ML DISP.SYRIN IV PRN (19:00)
--- NOTE | 2017-12-29 19:30 | NUR ---
RN NOTES RECEIVED PT. AWAKE ON BED, A/OX2, NOTICED ON THE LEFT FOREARM ARE SWOLLEN, MD IS AWARE, MARSHALLESE SPEAKING, SR ON TELE MONITOR HR-86, ON BILATERAL SOFT WRIST RESTRAINTS, CIRCULATION ARE GOOD, DENIES PAIN, NO SOB, CALL LIGHT WITHIN REACH, [id number] , CONTINUE TO MONITOR
--- NOTE | 2017-12-29 19:35 | NUR ---
RN CLOSING NOTES PT. IS IN BED A&OX1, CONFUSED TO PLACE, AND TIME. BREATHING ON ROOM AIR UNLABORED, AND EVENLY. PT. HAS BILATERAL SOFT WRIST RESTRAINTS DUE TO PULLING OUT IV LINE MULTIPLE TIMES IN ICU PER REPORT. LAST BLOOD SUGAR CHECK PER ICU WAS 199 MG/DL, MODERATE SLIDING SCALE WAS ORDERED PER MD TELEPHONE ORDER. PT. RECEIVED HEMODIALYSIS AND HAD 1000 ML OUTPUT. PT. HAD 1 UNIT OF PRBC'S, 1 UNIT OF FFP, AND 1 UNIT OF CRYOPRECIPITATE BLOOD IN ICU. BED IS IN LOWEST, AND LOCKED POSITION. 2 SIDE RAILS UP, AND CALL LIGHT WITHIN REACH. WILL ENDORSE REPORT TO NURSE.
[2017-12-29] MEDS: DONEPEZIL 5 MG TABLET PO SCH (21:17)
[2017-12-29] MEDS: *INSULIN REGULAR(HUMULIN R)HUM 100 UNIT/ML VIAL SQ PRN (21:23)
--- NOTE | 2017-12-29 21:38 | NUR ---
RN NOTES SPOKE TO DR. FENTON AND INFORMED HIM [id number] PT. MAGNESIUM LEVEL OF 1.7, DR. FENTON ORDERED TO GIVE 1G OF MAGNESIUM ORDER NOTED AND CARRIED OUT
[2017-12-29] MEDS ORDERED: Magnesium 1GM/D5W 100ML PREMIX PIGGYBACK IV ONE (22:00)
[2017-12-29] MEDS: BLOOD SUGAR DIAGNOSTIC 1 EACH STRIP VI SCH (22:06)
[2017-12-29] MEDS ORDERED: Magnesium 1GM/D5W 100ML PREMIX 100 ML IV ONE (22:11)
[2017-12-30] VITALS: BP 108/71
[2017-12-30] MEDS: PIPERACILLIN /TAZOBACTAM 2.25 G in IV D5W 50 ML IV SCH (01:22)
[2017-12-30 04:00] VITALS: BP_SYST 108; BP_SYST 139; BP_DIAS 52; BP_DIAS 71
--- NOTE | 2017-12-30 04:42 | NUR ---
RN NOTES PT . IS SO ANXIOUS- SEROQUEL 12.5MG PO GIVEN ORDERED, V/S STABLE
--- NOTE | 2017-12-30 06:30 | NUR ---
RN NOTES SLEEPING BUT AROUSABLE, DENIES PAIN, NO SOB, MORNING CARE RENDERED, CIRCULATION ARE GOOD ON BOTH ARMS, CALL LIGHT WITHIN REACH, [id number], PT. NEEDS ATTENDED
[2017-12-30] MEDS: BLOOD SUGAR DIAGNOSTIC 1 EACH STRIP IN SCH ×2 (06:42→12:18)
[2017-12-30 06:53] LABS: CALCIUM, SERUM 8.6 mg/dL (8.5-10.1); CARBON DIOXIDE 35 mmol/L (21-32); CHLORIDE 100 mmol/L (98-107); CREATININE 2.6 mg/dL (0.6-1.3); GLUCOSE 75 mg/dL (74-106); MAGNESIUM 1.9 mg/dL (1.8-2.4); PHOSPHORUS 2.7 mg/dL (2.5-4.9); POTASSIUM 3.8 mmol/L (3.5-5.1); SODIUM SERUM 140 mmol/L (136-145); UREA NITROGEN, BLOOD 17 mg/dL (7-18)
[2017-12-30 08:00] VITALS: BP 121/68
--- NOTE | 2017-12-30 08:00 | NUR ---
RN NOTES RECEIVED PATIENT IN THE BED RESTING, NO RESPIRATORY DISTRESS, PATIENT D/C TELE TO MED/SURGE PER DR HOPSON, IV ACCESS ON RIGHT FA INTACT, ALSO PATIENT ON RIGHT UPPER ARM AV FISTULA, BILATERAL ARMS EDEMA, SCHEDULED MEDICATION ADMINISTERED PRESCRIBED, V/S STABLE, PATIENT INCONTINENT, ASSIST TURN AND REPOSITION Q 2 HR, CALL LIGHT WITHIN TO REACH, NEEDS ATTENDED AND ANTICIPATED CONTINUED MONITORING.
--- NOTE | 2017-12-30 08:05 | NUR ---
RN NOTES PATIENT ON SOFT RESTRAIN LOOSE, CIRCULATION CHECKED Q 2 HR.
[2017-12-30] MEDS: BLOOD SUGAR DIAGNOSTIC 1 EACH STRIP VI SCH ×4 (08:13→21:37)
[2017-12-30 09:27] LABS: BASOPHILS # (AUTO) 0.1 /CMM (0.0-0.2); BASOPHILS % (AUTO) 1.2 % (0.0-2.0); EOSINOPHILS # (AUTO) 1.6 /CMM (0.0-0.7); EOSINOPHILS % (AUTO) 22.7 % (0.0-6.0); LYMPHOCYTES # (AUTO) 1.3 /CMM (0.8-4.8); LYMPHOCYTES % (AUTO) 17.8 % (20.0-44.0); MEAN CORPUSCULAR HEMOGLOBIN 33 PG (26.0-33.0); MEAN CORPUSCULAR HGB CONC 34 g/dl (31.0-36.0); MEAN CORPUSCULAR VOLUME 98 fL (82-100); MONOCYTES # (AUTO) 1.1 /CMM (0.1-1.30); MONOCYTES % (AUTO) 15.1 % (2.0-12.0); NEUTROPHILS % (AUTO) 43.2 % (43.0-81.0); PLATELET COUNT (AUTO) 203 /CMM (150-450); RDW COEFFICIENT OF VARIATION 19.6 (11.5-15.0); RED BLOOD CELL COUNT(AUTO) 2.09 MIL/uL (4.0-5.2)
[2017-12-30 09:29] LABS: HEMATOCRIT 20 % (33-45)
[2017-12-30] MEDS: LACTOBACILLUS RHAMNOSUS GG 1 EACH CAP.SPRINK PO SCH ×2 (10:04→18:45)
[2017-12-30] MEDS: VIT B CMPLX 3/FA/VIT C/BIOTIN 1 TAB TABLET PO SCH (10:04)
[2017-12-30] MEDS: BENZTROPINE MESYLATE (1 MG) 1 MG TABLET PO SCH (10:04)
[2017-12-30] MEDS: BUMETANIDE (1 MG) 1 MG TABLET PO SCH ×3 (10:04→18:45)
[2017-12-30] MEDS: QUETIAPINE FUMARATE 25 MG TABLET PO SCH ×2 (10:04→18:45)
[2017-12-30] MEDS: PROSOURCE / PROSTAT (PYXIS) 30 ML UDC PO SCH (10:06)
[2017-12-30] MEDS: PANTOPRAZOLE 40 MG TABLET.DR PO SCH (10:06)
--- NOTE | 2017-12-30 11:30 | NUR ---
RN NOTES PATIENT RESTING IN THE BED, NO ACUTE DISTRESS, CALL LIGHT WITHIN TO REACH, SAFETY PRECAUTION MAINTAINED THE TIME.
[2017-12-30] MEDS: PIPERACILLIN /TAZOBACTAM 2.25 G in IV NS 0.9% 50 ML IV SCH ×2 (12:24→21:26)
[2017-12-30 12:30] LABS: EOSINOPHILS % (MANUAL) 18 % (0-4); LYMPHOCYTES % (MANUAL) 18 % (16-48); NEUTROPHILS % (MANUAL) 64 (42-76)
[2017-12-30] MEDS: INSULIN REGULAR, HUMAN 100 UNIT/ML 3 ML VIAL SQ PRN ×2 (12:30→18:50)
--- NOTE | 2017-12-30 12:32 | NUR ---
RN NOTES BS-239 MG/DL COVERAGE GIVEN, SCHEDULED MEDICATION ADMINISTERED, PATIENT STABLE AT THIS TIME, NO ACUTE DISTRESS, ASSIST EATING LUNCH, ALSO ASSIST TURN END REPOSITION Q 2 HR, CALL LIGHT WITHIN TO REACH, CONTINUED MONITORING.
[2017-12-30 16:00] VITALS: BP 102/57
--- NOTE | 2017-12-30 18:57 | NUR ---
RN NOTES MRSA OF NARES SWAB TAKEN CALLED LAB FOR SECURITY OPERATIONS CENTER OPERATOR, V/S TAKEN STABLE, BS-161 MG/DL COVERAGE GIVEN, SCHEDULED MEDICATION ADMINISTERED, PATIENT HAS NO RESPIRATORY DISTRESS, CALL LIGHT WITHIN TO REACH, ASSIST TURN AND REPOSITION Q2 HR, BILATERAL UPPER WRIST RESTRAIN CHECKED Q 2 HR FOR CIRCULATION, SAFETY PRECAUTION MAINTAINED ALL THE TIME. NEEDS ATTENDED A DN ANTICIPATED. ENDORSED ONCOMING NURSE FOR CECILIA.
--- NOTE | 2017-12-30 19:15 | NUR ---
MS/RN NOTES RECEIVED PT. LYING IN BED. AWAKE, ALERT AND ORIENTED X 1-2. PT. IS ARABIC SPEAKING. BREATHING EVEN AND UNLABORED ON 2LPM O2 VIA NC. NO SOB, RESPIRATORY DISTRESS OR S/S OF PAIN NOTED AT THIS TIME. PT. WITH RIGHT FOREARM 18 GAUGE IV SALINE LOCK PRESENT, PATENT AND INTACT. PT. WITH RIGHT AV FISTULA PRESENT AND INTACT. PT. WITH LEFT UPPER ARM OLD FISTULA SIGHT DRESSING PRESENT, CLEAN, DRY AND INTACT. PT. WITH BILATERAL SOFT WRIST RESTRAINTS PRESENT AND INTACT. CIRCULATION CHECK DONE. PT. WITH BILATERAL UPPER EXTREMITY EDEMA NOTED. BED LOCKED AND IN LOWEST POSITION, SIDE RAILS UP X3, BED ALARM ON, CALL LIGHT WITHIN REACH, WILL CONTINUE TO MONITOR.
[2017-12-30 20:00] VITALS: BP 135/52
[2017-12-30] MEDS: DONEPEZIL 5 MG TABLET PO SCH (21:37)
[2017-12-30] MEDS: *INSULIN REGULAR(HUMULIN R)HUM 100 UNIT/ML VIAL SQ PRN (21:38)
[2017-12-31] MEDS: PIPERACILLIN /TAZOBACTAM 2.25 G in IV NS 0.9% 50 ML IV SCH ×2 (06:00→12:30)
--- NOTE | 2017-12-31 06:18 | NUR ---
MS/RN NOTES PT. IS LYING IN BED RESTING. BREATHING EVEN AND UNLABORED ON 2LPM O2 VIA NC. NO SOB, RESPIRATORY DISTRESS OR S/S OF PAIN NOTED AT THIS TIME. PT. WITH RIGHT FOREARM 18 GAUGE IV SALINE LOCK PRESENT, PATENT AND INTACT. PT. WITH RIGHT AV FISTULA PRESENT AND INTACT. PT. WITH LEFT UPPER ARM OLD FISTULA SIGHT DRESSING PRESENT, CLEAN, DRY AND INTACT. PT. WITH BILATERAL SOFT WRIST RESTRAINTS PRESENT AND INTACT. CIRCULATION CHECK DONE. ALL PT. NEEDS MET. PT. OFFLOADED, TURNED AND REPOSITIONED Q2H AND NEEDED. BED LOCKED AND IN LOWEST POSITION, SIDE RAILS UP X3, BED ALARM ON, CALL LIGHT WITHIN REACH, WILL ENDORSE TO DAYSHIFT NURSE FOR CONTINUITY OF CARE.
[2017-12-31] MEDS: BLOOD SUGAR DIAGNOSTIC 1 EACH STRIP VI SCH ×2 (06:54→12:28)
[2017-12-31 07:47] LABS: BASOPHILS # (AUTO) 0.1 /CMM (0.0-0.2); BASOPHILS % (AUTO) 0.7 % (0.0-2.0); EOSINOPHILS # (AUTO) 1.6 /CMM (0.0-0.7); HEMATOCRIT 23 % (33-45); HEMOGLOBIN 7.9 g/dL (11.5-14.8); LYMPHOCYTES # (AUTO) 1.2 /CMM (0.8-4.8); LYMPHOCYTES % (AUTO) 11.1 % (20.0-44.0); MEAN CORPUSCULAR HEMOGLOBIN 33 PG (26.0-33.0); MEAN CORPUSCULAR HGB CONC 34 g/dl (31.0-36.0); MEAN CORPUSCULAR VOLUME 97 fL (82-100); MONOCYTES # (AUTO) 1.2 /CMM (0.1-1.30); MONOCYTES % (AUTO) 10.3 % (2.0-12.0); NEUTROPHILS # (AUTO) 7.1 /CMM (1.8-8.9); NEUTROPHILS % (AUTO) 63.9 % (43.0-81.0); PLATELET COUNT (AUTO) 269 /CMM (150-450); RDW COEFFICIENT OF VARIATION 18.3 (11.5-15.0); RED BLOOD CELL COUNT(AUTO) 2.41 MIL/uL (4.0-5.2); WHITE BLOOD COUNT (AUTO) 11.2 K/uL (4.3-11.0)
[2017-12-31 08:00] VITALS: BP_SYST 123; BP_DIAS 40; BP_DIAS 52
--- NOTE | 2017-12-31 08:00 | NUR ---
RN NOTES RECEIVED PATIENT IN THE BED A/O X2/3, COOPERATIVE, REDIRECTABLE, NO ACUTE DISTRESS, NO RESPIRATORY DISTRESS, V/S TAKEN STABLE, PATIENT REFUSED PAIN AT THIS TIME BUT C/O ITCHING GENERALIZED, APPLIED A&D OINTMENT ,SCHEDULED MEDICATION ADMINISTERED, EDEMA UPPER ARMS KEEP ELEVATED USING PILLOWS, NEEDS ATTENDED AND ANTICIPATED, ASSIST EATING, SOFT RESTRAIN BILATERAL ARM CHECKED FOR CIRCULATION, CALL LIGHT WITHIN TO REACH, ASSIST TURN AND REPOSITION Q 2 HR CONTINUED MONITORING.
[2017-12-31] MEDS: LACTOBACILLUS RHAMNOSUS GG 1 EACH CAP.SPRINK PO SCH (08:12)
[2017-12-31] MEDS: VIT B CMPLX 3/FA/VIT C/BIOTIN 1 TAB TABLET PO SCH (08:12)
[2017-12-31] MEDS: BENZTROPINE MESYLATE (1 MG) 1 MG TABLET PO SCH (08:12)
[2017-12-31] MEDS: QUETIAPINE FUMARATE 25 MG TABLET PO SCH (08:12)
[2017-12-31] MEDS: PANTOPRAZOLE 40 MG TABLET.DR PO SCH (08:12)
[2017-12-31] MEDS: BUMETANIDE (1 MG) 1 MG TABLET PO SCH ×2 (08:13→12:28)
[2017-12-31] MEDS: PROSOURCE / PROSTAT (PYXIS) 30 ML UDC PO SCH (08:13)
[2017-12-31 08:22] LABS: CALCIUM, SERUM 8.9 mg/dL (8.5-10.1); CARBON DIOXIDE 32 mmol/L (21-32); CHLORIDE 101 mmol/L (98-107); CREATININE 3.9 mg/dL (0.6-1.3); GLUCOSE 117 mg/dL (74-106); MAGNESIUM 1.9 mg/dL (1.8-2.4); PHOSPHORUS 3.5 mg/dL (2.5-4.9); POTASSIUM 4.2 mmol/L (3.5-5.1); SODIUM SERUM 143 mmol/L (136-145); UREA NITROGEN, BLOOD 29 mg/dL (7-18)
--- NOTE | 2017-12-31 10:00 | NUR ---
RN NOTES PATIENT GATING HEMODIALYSIS AT THIS TIME. V/S STABLE, CALL LIGHT WITHIN TO REACH, CONTINUED MONITORING.
[2017-12-31] MEDS ORDERED: PIPE3.379 IV (11:02)
[2017-12-31] MEDS ORDERED: QUETIAPINE FUMARATE 25 MG TABLET PO SCH (13:00)
--- NOTE | 2017-12-31 14:00 | NUR ---
RN NOTES HEMODIALYSIS DONE AT THIS TIME, OUTPUT IS 2000ML, PATIENT TAKE SCHEDULED MEDICATION, V/S STABLE, CALL LIGHT WITHIN TO REACH, PATIENT REFUSED PAIN AT THIS TIME, CONTINUED MONITORING.
[2017-12-31] MEDS: INSULIN REGULAR, HUMAN 100 UNIT/ML 3 ML VIAL SQ PRN (14:23)
--- NOTE | 2017-12-31 16:13 | NUR ---
DISCHARGE NOTES PATIENT DISCHARGE AT THIS TIME GOING SNF. MED RECONCILIATION, AND DISCHARGE ORDER REVIEWED AND EXPLAINED TO. PATIENT MED COMPLAINT, REFUSED PAIN AT THIS TIME, V/S STABLE 125/48, P-73. MED RECONCILIATION AND DISCHARGE ORDER REVIEWED AND EXPLAINED TO. REPORT GIVEN SNF MELANI YE. RN VERBALIZED UNDERSTANDING. BELONGING RETURN ED BACK TO THE PATIENT. PATIENT UNABLE TO SIGN PAPERWORK, ALSO REFUSED PICTURE TO BE TAKEN. DAUGHTER AWARE OF DISCHARGE. PATIENT DRILLING CONTRACTOR BY AMBULANCE.
[2017-12-31] MEDS ORDERED: VANCOMYCIN 1 GM in IV NS 0.9% 250 ML IV ONE (17:00)
== END 2017-12-31 16:00 | DRG 314 ==
LOC: ER 00:10 → TELE 03:33 → MED 08:58 → ICU 15:24 → TELE 12-29 17:02 → MED 12-30 07:44
PROVIDERS: ADMIT Internal Medicine; ATTEND Internal Medicine
PROC: 5A1D70Z Performance of Urinary Filtration, Intermittent, Less than 6 Hours Per Day (ICD-10-PCS; principal; 2017-12-28)
PROC: 30233K1 Transfusion of Nonautologous Frozen Plasma into Peripheral Vein, Percutaneous Approach (ICD-10-PCS; 2017-12-28)
PROC: 30233N1 Transfusion of Nonautologous Red Blood Cells into Peripheral Vein, Percutaneous Approach (ICD-10-PCS; 2017-12-28)
PROC: 30233M1 Transfusion of Nonautologous Plasma Cryoprecipitate into Peripheral Vein, Percutaneous Approach (ICD-10-PCS; 2017-12-28)
PROC: 06HM33Z Insertion of Infusion Device into Right Femoral Vein, Percutaneous Approach (ICD-10-PCS; 2017-12-28)
PROC: B54BZZA Ultrasonography of Right Lower Extremity Veins, Guidance (ICD-10-PCS; 2017-12-28)
PROC: 5A1D70Z Performance of Urinary Filtration, Intermittent, Less than 6 Hours Per Day (ICD-10-PCS; 2017-12-29)
PROC: 5A1D70Z Performance of Urinary Filtration, Intermittent, Less than 6 Hours Per Day (ICD-10-PCS; 2017-12-31)
DX: T82.838A Hemorrhage due to vascular prosthetic devices, implants and grafts, initial encounter (principal); E43 Unspecified severe protein-calorie malnutrition; G93.41 Metabolic encephalopathy; N17.9 Acute kidney failure, unspecified; I13.2 Hypertensive heart and chronic kidney disease with heart failure and with stage 5 chronic kidney disease, or end stage renal disease; E11.22 Type 2 diabetes mellitus with diabetic chronic kidney disease; R53.2 Functional quadriplegia; D62 Acute posthemorrhagic anemia; D68.59 Other primary thrombophilia; N18.6 End stage renal disease; E87.1 Hypo-osmolality and hyponatremia; L03.114 Cellulitis of left upper limb; Y84.9 Medical procedure, unspecified as the cause of abnormal reaction of the patient, or of later complication, without mention of misadventure at the time of the procedure; Y92.9 Unspecified place or not applicable; Y84.1 Kidney dialysis as the cause of abnormal reaction of the patient, or of later complication, without mention of misadventure at the time of the procedure; Z99.2 Dependence on renal dialysis; F03.90 Unspecified dementia, unspecified severity, without behavioral disturbance, psychotic disturbance, mood disturbance, and anxiety; K21.9 Gastro-esophageal reflux disease without esophagitis; F41.9 Anxiety disorder, unspecified; Z88.6 Allergy status to analgesic agent; Z88.5 Allergy status to narcotic agent; Z88.7 Allergy status to serum and vaccine; Z79.4 Long term (current) use of insulin; Z79.899 Other long term (current) drug therapy; K59.00 Constipation, unspecified; E78.5 Hyperlipidemia, unspecified; E66.9 Obesity, unspecified; D63.8 Anemia in other chronic diseases classified elsewhere; F29 Unspecified psychosis not due to a substance or known physiological condition; L29.9 Pruritus, unspecified; M85.9 Disorder of bone density and structure, unspecified; F42.4 Excoriation (skin-picking) disorder
CPT/HCPCS: 36415; 71045-TC; 80048-TC; 80053-TC; 80061-TC; 80076-TC; 80202-TC; 82962-TC; 83605-TC; 83735-TC; 84100-TC; 84443-TC; 84484-TC; 85025-TC; 85730-TC; 86850-TC; 86880-TC; 86921-TC; 87040-TC; 87081-TC; 90935-TC; 93971-TC; 94799-TC; A4216; A4606; A6403; C1751; C1769; J0885; J1815; J2060; J2543; J3370; J3475; J7030; J7050; J7060; P9012; P9016-BL; P9017-BL; P9047; Z7610

== ENCOUNTER 2018-02-09 12:48 | Inpatient (IN) | payer MEDICARE, OTHER ==
[~2018-02-09] VITALS: Ht 160 cm; Wt 66.7 kg
[~2018-02-09 12:48] MED LIST changes: -BENZ0.5T3 PO; +BENZ0.5T43 PO; +PIPE3.379 IV
--- NOTE | 2018-02-09 13:15 | NUR ---
PT REC'D TO ER [facility] FROM [facility] PT GETS DIAYLSIS TODAY . HAD TEMP 100.4 LEFT ARM CELLUSITIS RED CRACKED SKIN UP ON PILLOWS LEFT WRIST 20G LABS AND CULTURES DRAWN SEN TO LAB . RT UPPER ARM SHUT + THRILL . SPEAKS RWANDAN .
[2018-02-09] MEDS ORDERED: DIPH25CA6 PO (13:16)
[2018-02-09] MEDS ORDERED: TRAM50TA2 PO (13:16)
[2018-02-09] MEDS ORDERED: ALBU2.5V38 IH (13:16)
[2018-02-09] MEDS ORDERED: OMEP20CA10 PO (13:16)
[2018-02-09] MEDS ORDERED: ACID1TAB12 PO (13:16)
[2018-02-09] MEDS ORDERED: MEGE400O4 PO (13:16)
[2018-02-09] MEDS ORDERED: ACET-868 PO (13:16)
[2018-02-09] MEDS ORDERED: QUET25TA PO (13:16)
[2018-02-09] MEDS ORDERED: IV NS 0.9% 500 ML BAG IV ONE (13:30)
[2018-02-09] MEDS ORDERED: MEROPENEM 1 G in IV NS 0.9% 100 ML IV ONE (13:30)
[2018-02-09] MEDS ORDERED: VANCOMYCIN 1 GM in IV D5W 250 ML IV ONE (13:30)
[2018-02-09] MEDS ORDERED: ACETAMINOPHEN ES 500 MG TABLET PO ONE (13:30)
[2018-02-09 13:31] LABS: BASOPHILS % (AUTO) 0.1 % (0.0-2.0); HEMATOCRIT 33 % (33-45); HEMOGLOBIN 10.9 g/dL (11.5-14.8); LYMPHOCYTES # (AUTO) 0.8 /CMM (0.8-4.8); LYMPHOCYTES % (AUTO) 4.1 % (20.0-44.0); MEAN CORPUSCULAR HGB CONC 33 g/dl (31.0-36.0); MEAN CORPUSCULAR VOLUME 97 fL (82-100); MONOCYTES # (AUTO) 1.6 /CMM (0.1-1.30); MONOCYTES % (AUTO) 8.4 % (2.0-12.0); NEUTROPHILS # (AUTO) 16.6 /CMM (1.8-8.9); NEUTROPHILS % (AUTO) 87.4 % (43.0-81.0); PLATELET COUNT (AUTO) 465 /CMM (150-450); RDW COEFFICIENT OF VARIATION 16.6 (11.5-15.0); RED BLOOD CELL COUNT(AUTO) 3.39 MIL/uL (4.0-5.2)
[2018-02-09] MEDS ORDERED: ACETAMINOPHEN ES 500 MG TABLET ONE (13:31)
--- NOTE | 2018-02-09 13:45 | NUR ---
BED M/S 206-2
--- NOTE | 2018-02-09 13:45 | NUR ---
MEDS GIVEN PER MD ORDERS VSS
[2018-02-09 13:46] LABS: CALCIUM, SERUM 8.6 mg/dL (8.5-10.1); CARBON DIOXIDE 22 mmol/L (21-32); CHLORIDE 96 mmol/L (98-107); CREATININE 4.2 mg/dL (0.6-1.3); GLUCOSE 191 mg/dL (74-106); POTASSIUM 5.2 mmol/L (3.5-5.1); SODIUM SERUM 134 mmol/L (136-145); UREA NITROGEN, BLOOD 48 mg/dL (7-18)
[2018-02-09 13:50] LABS: ALANINE AMINOTRANSFERASE 6 U/L (12-78); ALBUMIN 1.9 g/dL (3.4-5.0); ALKALINE PHOSPHATASE 79 U/L (46-116); ASPARTATE AMINOTRANSFERASE 22 U/L (15-37); BILIRUBIN,DIRECT 0.3 mg/dL (0.0-0.2); BILIRUBIN,TOTAL 0.8 mg/dL (0.2-1.0); TOTAL PROTEIN, SERUM 6.5 g/dL (6.4-8.2)
[2018-02-09 13:55] LABS: TROPONIN I 0.023 ng/mL (0.00-0.056)
[2018-02-09 13:57] LABS: INR 1.29 (0.87-1.13)
--- NOTE | 2018-02-09 14:12 | NUR ---
PT PULLED OUT IV SENT TO CT
--- NOTE | 2018-02-09 15:28 | NUR ---
BED TELE 306-5
[2018-02-09 15:51] LABS: LYMPHOCYTES % (MANUAL) 10 % (16-48)
[2018-02-09 15:52] LABS: BAND % (MANUAL) 24 % (0.0-5.0); MYELOCYTES % 2 % (0-0); NEUTROPHILS % (MANUAL) 56 (42-76)
[2018-02-09 15:55] LABS: MONOCYTES % (MANUAL) 7 % (0-11.0)
--- NOTE | 2018-02-09 16:03 | NUR ---
REPORT GIVEN TO FLOOR STABLE FOR TRANSFER . IV VANCO INFUSIUNG TO FLOOR
[2018-02-09] MEDS ORDERED: HYDROCODONE/APAP 5/325MG 1 EACH TABLET PO PRN (16:30)
[2018-02-09] MEDS ORDERED: MAGNESIUM HYDROXIDE 30 ML UDC PO PRN ×2 (16:30→17:00)
[2018-02-09] MEDS ORDERED: MAG HYDROX/AL HYDROX/SIMETH 30 ML UDC PO PRN (16:30)
[2018-02-09] MEDS ORDERED: Z GUARD REMEDY 2 OZ OINT TP PRN (16:30)
[2018-02-09] MEDS ORDERED: ZOLPIDEM TARTRATE 5 MG TABLET PO PRN (16:30)
[2018-02-09] MEDS ORDERED: ONDANSETRON HCL/PF 4 MG/2 ML VIAL IVP PRN (16:30)
[2018-02-09] MEDS ORDERED: ALBUTEROL FS 2.5 MG/3 ML VIAL.NEB IH PRN (17:00)
[2018-02-09] MEDS ORDERED: diphenhydrAMINE HCL 25 MG CAPSULE PO PRN (17:00)
[2018-02-09] MEDS ORDERED: BUMETANIDE (1 MG) 1 MG TABLET PO SCH (17:00)
[2018-02-09] MEDS ORDERED: MEGESTROL ACETATE SUSP 400 MG/10 ML UDC PO SCH (17:00)
[2018-02-09] MEDS ORDERED: INSULIN REGULAR, HUMAN 100 UNIT/ML 3 ML VIAL SQ PRN (17:00)
[2018-02-09] MEDS ORDERED: NA PHOS,M-B/NA PHOS,DI-BA 1 EA ENEMA RC PRN (17:00)
[2018-02-09] MEDS: ACIDOPHILUS/BULGARICUS 1 EACH TAB.CHEW PO SCH (17:00)
[2018-02-09] MEDS ORDERED: DEXTROSE 50%-WATER 50 ML DISP.SYRIN IV PRN (17:00)
[2018-02-09] MEDS ORDERED: Medication Not On Formulary EA (Ondansetron Hcl (Zofran) 4 MG) PO PRN (17:00)
[2018-02-09] MEDS ORDERED: BISACODYL SUPP (10 MG) 10 MG/SUPP.RECT SUPP.RECT RC PRN (17:00)
[2018-02-09] MEDS ORDERED: FEE PK DOSING 1 MIN EA MC ONE (17:12)
[2018-02-09] MEDS ORDERED: VANCOMYCIN 500 MG in IV D5W 100 ML IV PRN (17:30)
[2018-02-09] MEDS: BLOOD SUGAR DIAGNOSTIC 1 EACH STRIP IN SCH ×2 (17:37→22:33)
[2018-02-09] MEDS: PANTOPRAZOLE 40 MG VIAL IV SCH (17:37)
--- NOTE | 2018-02-09 18:00 | NUR ---
MS RN ADMITTED A 77 YEAR OLD FEMALE, CAME IN FROM ER, ALERT,ORIENTED X2,CAME IN W/ DX OF SEPSIS , W/ CC OF DIARRHEA, VOMITING OF BLOOD IN THE FACILITY, NO VOMITING IN MY SHIFT,DIARRHEA X2 , SENT STOOL FOR EXAM, WILL MONITOR PATIENT.
--- NOTE | 2018-02-09 18:05 | NUR ---
MS RN WAS SEEN BY MOTORSPORTS TECHNICIAN VAUGHN ROBERTS, WAS AWARE OF DIARRHEA AND LACTIC ACID RESULT, NO NEW ORDER AT THIS TIME, ASK ABOUT ANY IV, PATIENT LOOKS DEHYDRATED BUT REFUSED TO ORDER ANY FLUIDS AT THIS TIME.
--- NOTE | 2018-02-09 18:55 | NUR ---
ms rn was able to speak w/ nurse practitioner about ngt that was not inserted, charge nurse is aware that it was not inserted, no further order noted.
[2018-02-09] MEDS ORDERED: IV NS 0.9% 500 ML IV ONE ×2 (19:00→20:00)
--- NOTE | 2018-02-09 19:00 | NUR ---
MS RN ON BED, NO DISTRESS NOTED, ALL NEEDS ATTENDED.
--- NOTE | 2018-02-09 19:30 | NUR ---
CLINICAL RADIOLOGIST OPENING NOTES RECEIVED PT IN BED AWAKE, ALERT, VERBALLY RESPONSIVE, YEMENI SPEAKING. ON ROOM AIR, RESPIRATIONS EVEN, UNLABORED, NO APPARENT DISTRESS NOTED. DENIES ANY PAIN OR DISCOMFORT AT THIS TIME. CALL LIGHT WITHIN REACH, BED LOCKED IN LOWEST POSITION. KEPT CLEAN AND COMFORTABLE, ATTENDED ALL NEEDS. PT NPO. WILL CONTINUE TO MONITOR ACCORDINGLY.
[2018-02-09 20:00] VITALS: BP 123/49
[2018-02-09] MEDS ORDERED: ONDANSETRON HCL/PF 4 MG/2 ML VIAL IV PRN (20:00)
--- NOTE | 2018-02-09 20:30 | NUR ---
BDR NOTE RECEIVED A CALL FROM LAB WITH LACTIC ACID RESULT 2.7, MARIELA SWANSON NOTIFIED WITH NO NEW ORDER NOTED AT THIS TIME. OK TO CONTINUE IV BOLUS NS AND CAN GIVE PO MEDS. WILL CONTINUE TO MONITOR ACCORDINGLY.
[2018-02-09] MEDS: MEROPENEM 500 MG in IV NS 0.9% 50 ML IV SCH (20:56)
[2018-02-09] MEDS: QUETIAPINE FUMARATE 25 MG TABLET PO SCH (21:40)
[2018-02-09 22:00] VITALS: BP 123/68
[2018-02-09 22:06] LABS: OCCULT BLOOD STOOL NEGATIVE (NEGATIVE)
[2018-02-09 22:37] LABS: BASOPHILS % (AUTO) 0.2 % (0.0-2.0); EOSINOPHILS % (AUTO) 0.1 % (0.0-6.0); HEMATOCRIT 35 % (33-45); HEMOGLOBIN 11.3 g/dL (11.5-14.8); LYMPHOCYTES # (AUTO) 0.7 /CMM (0.8-4.8); LYMPHOCYTES % (AUTO) 4.3 % (20.0-44.0); MEAN CORPUSCULAR HGB CONC 32 g/dl (31.0-36.0); MEAN CORPUSCULAR VOLUME 98 fL (82-100); MONOCYTES # (AUTO) 0.8 /CMM (0.1-1.30); MONOCYTES % (AUTO) 4.7 % (2.0-12.0); NEUTROPHILS # (AUTO) 15.5 /CMM (1.8-8.9); NEUTROPHILS % (AUTO) 90.7 % (43.0-81.0); PLATELET COUNT (AUTO) 447 /CMM (150-450); RED BLOOD CELL COUNT(AUTO) 3.58 MIL/uL (4.0-5.2); WHITE BLOOD COUNT (AUTO) 17.1 K/uL (4.3-11.0)
[2018-02-09 22:46] LABS: CALCIUM, SERUM 8.1 mg/dL (8.5-10.1); CARBON DIOXIDE 20 mmol/L (21-32); CHLORIDE 97 mmol/L (98-107); CREATININE 4.6 mg/dL (0.6-1.3); GLUCOSE 230 mg/dL (74-106); POTASSIUM 5.1 mmol/L (3.5-5.1); SODIUM SERUM 136 mmol/L (136-145); UREA NITROGEN, BLOOD 52 mg/dL (7-18)
--- NOTE | 2018-02-09 23:15 | NUR ---
UX DESIGN LEAD NOTE RECEIVED A CALL FROM LAB LACTIC ACID 3.8, MARIELA SWANSON NOTIFIED WITH NO NEW ORDER AT THIS TIME. PT PULLED IV ACCESS, MARIELA SWANSON ORDERED BILATERAL SOFT WRIST RESTRAINS. WILL CONTINUE TO MONITOR ACCORDINGLY.
--- NOTE | 2018-02-09 23:20 | NUR ---
VENEER TAPING MACHINE OPERATOR NOTE PT TRANSFERRED TO ICU, ALERT, AWAKE, VERBALLY RESPONSIVE, NO S/SX OF PAIN OR DISCOMFORT NOTED. ATTENDED ALL NEEDS. REPORT GIVEN TO TONY
[2018-02-10] VITALS (32 sets, daily range): BP systolic 80–117; BP diastolic 23–54
[2018-02-10] MEDS ORDERED: INSULIN REGULAR, HUMAN 100 UNIT/ML 3 ML VIAL SQ PRN
--- NOTE | 2018-02-10 00:10 | NUR ---
ICU/INSPECTOR PRINTED CIRCUIT BOARDS PT WAS A 3 WEST TRANSFER, DUE TO SEPSIS AND HIGH LACTIC ACID 3.8. PT PLACED ON BEDSIDE MONITOR. ALERT X 1 TO SELF. O2 1 LITER VIA N/C SATS ARE 99%. PT IS NPO EXCEPT MEDS. PT IS AN HD PT WHO DID NOT GET DIALYSIS TODAY DUE TO BEING IN THE HOSPITAL. PT IS ANURIC. THERE IS A FEW SKIN ISSUES THAT IS ADDRESSED ON THE FLOWSHEET. NO IV CHARGE NURSE AWARE OF THIS. PT WAS TURNED AND REPOSITIONED FOR COMFORT AND CARE
--- NOTE | 2018-02-10 00:45 | NUR ---
ICU/SEWING MACHINE BOBBIN WINDER CHARGE NURSE PLACED IV HEPLOCK TO THE LEFT CHEST WALL 22G. IN AM PT TO HAVE PICC LINE PLACED.
[2018-02-10] MEDS ORDERED: VANCOMYCIN HCL 125 MG/2.5 ML ORAL.SUSP ONE (01:22)
[2018-02-10] MEDS: BLOOD SUGAR DIAGNOSTIC 1 EACH STRIP IN SCH ×6 (01:55→20:49)
[2018-02-10] MEDS: VANCOMYCIN HCL 125 MG/2.5 ML ORAL.SUSP PO SCH ×4 (01:56→17:17)
--- NOTE | 2018-02-10 02:10 | NUR ---
ICU/SUPPORT TEAM MEMBER PT IS NPO WITH ACCU CHECKS, DID A SPOT CHECK TO SEE WHAT CURRENT BLOOD SUGAR WAS. IT WAS 217, NO COVERAGE GIVEN FOR THIS BECAUSE PT IS NPO AND NO IVF CURRENTLY. WILL CONTINUE TO MONITOR SUGARS ORDERED BU .
--- NOTE | 2018-02-10 02:30 | NUR ---
ICU/CONDENSER OPERATOR PT HAS PO VANCO THAT WAS GIVEN DUE TO THE R/O C-DIFF, PT HAD MANY LOSE WATERY STOOL. PT TOLERATED THIS WELL. AWAITING C-DIFF RESULTS.
--- NOTE | 2018-02-10 03:05 | NUR ---
ICU/BARREL ENDSHAKER ADJUSTER DAUGHTER CALLED ASKING ABOUT HER MOTHER THE PT, GAVE SMALL BRIEF UPDATE ON THE PT AND WHY PT WAS BROUGHT INTO ICU. SAID OK AND THAT SHE WOULD BE HERE SOMETIME IN THE MORNING DURING VISITING HOURS.
[2018-02-10 04:49] LABS: EOSINOPHILS % (AUTO) 0.6 % (0.0-6.0); HEMATOCRIT 34 % (33-45); HEMOGLOBIN 11.4 g/dL (11.5-14.8); LYMPHOCYTES # (AUTO) 1.1 /CMM (0.8-4.8); LYMPHOCYTES % (AUTO) 6.1 % (20.0-44.0); MEAN CORPUSCULAR HGB CONC 33 g/dl (31.0-36.0); MEAN CORPUSCULAR VOLUME 98 fL (82-100); MONOCYTES # (AUTO) 0.5 /CMM (0.1-1.30); MONOCYTES % (AUTO) 2.9 % (2.0-12.0); NEUTROPHILS # (AUTO) 16.1 /CMM (1.8-8.9); NEUTROPHILS % (AUTO) 90.4 % (43.0-81.0); PLATELET COUNT (AUTO) 431 /CMM (150-450); RDW COEFFICIENT OF VARIATION 16.4 (11.5-15.0); RED BLOOD CELL COUNT(AUTO) 3.51 MIL/uL (4.0-5.2); WHITE BLOOD COUNT (AUTO) 17.8 K/uL (4.3-11.0)
--- NOTE | 2018-02-10 04:55 | NUR ---
ICU/BILINGUAL SALES ASSISTANT PT HAS A ORDER TO PLACE NGT, HOWEVER PT SWALLOWS WELL WHEN GIVEN ORAL MEDICATION OF VANCO. CHARGE NURSE AWARE THAT NGT IS NOT NECESSARY. WILL CONTINUE TO MONITOR THIS PT.
[2018-02-10 05:05] LABS: CALCIUM, SERUM 7.7 mg/dL (8.5-10.1); CARBON DIOXIDE 24 mmol/L (21-32); CHLORIDE 99 mmol/L (98-107); CREATININE 4.6 mg/dL (0.6-1.3); GLUCOSE 219 mg/dL (74-106); MAGNESIUM 1.9 mg/dL (1.8-2.4); PHOSPHORUS 5.8 mg/dL (2.5-4.9); POTASSIUM 5.3 mmol/L (3.5-5.1); SODIUM SERUM 137 mmol/L (136-145); UREA NITROGEN, BLOOD 58 mg/dL (7-18)
[2018-02-10 05:13] LABS: CHOLESTEROL 145 mg/dL (<200); HDL CHOLESTEROL 13 mg/dL (40-60); LDL 39 mg/dL (0-99); TRIGLYCERIDES 281 mg/dL (30-150)
[2018-02-10 05:22] LABS: BAND % (MANUAL) 29 % (0.0-5.0); LYMPHOCYTES % (MANUAL) 7 % (16-48); METAMYELOCYTES % 4 % (0-0); MONOCYTES % (MANUAL) 3 % (0-11.0); MYELOCYTES % 3 % (0-0); NEUTROPHILS % (MANUAL) 55 (42-76)
--- NOTE | 2018-02-10 06:20 | NUR ---
ICU/MANAGER MACHINE PT WAS HAVING LARGE AMOUNTS OF LIQUID STOOL, CHARGE NURSE NOTIFIED GOT ORDER FOR FEXIL SEAL
--- NOTE | 2018-02-10 07:49 | NUR ---
RN NOTES RECEIVED PT RESTING IN BED, ASLEEP EASILY AROUSABLE TO VERBAL AND TACTILE STIMULI. PT AFBERILE (98.9 ORAL). ON O2@2LPM VIA NC. ST ON TACHY CLOTHESPIN DRIER OPERATOR. NOTED WITH EDEMA ON L ARM (OLD AV SHUNT) DAKSHA AV SHUNT POSITIVE FOR BRUIT AND THRILL. NOTED WITH IV SITE ON LEFT CHEST WALL. WITH R HAND SOFT WRIST RESTRAINT, RELEASED AND CHECKED FOR CIRCULATION. PT NPO STATUS. FLEXISEAL IN PLACE. KEPT COMFORTABLE, CALL LIGHT WITHIN REACH.
[2018-02-10] MEDS ORDERED: ALBUMIN 25% 25 GM in PREMIX 1 EA IV ONE (08:30)
--- NOTE | 2018-02-10 08:48 | NUR ---
RN NOTES ONGOING HEMODIALYSIS. NOTED SBP 80'S. ALBUMIN PRN GIVEN BY HD NURSE. WILL MONITOR CLOSELY.
[2018-02-10] MEDS: PROSOURCE / PROSTAT (PYXIS) 30 ML UDC PO SCH (09:00)
--- NOTE | 2018-02-10 10:28 | NUR ---
RN NOTES RECEIVED A CALL FROM [place], PT POSITIVE FOR C DIFF. NOTIFIED, PT ON CONTACT ISOLATION. ISOLATION PRECAUTION OBSERVED
[2018-02-10] MEDS ORDERED: IV NS 0.9% 1,000 ML BAG IV ONE (11:00)
[2018-02-10] MEDS ORDERED: DEXTROSE 50%-WATER 50 ML DISP.SYRIN IV PRN ×2 (11:00)
[2018-02-10] MEDS ORDERED: IV NS 0.9% 1,000 ML IV PRN ×2 (11:00→11:30)
[2018-02-10] MEDS: MEROPENEM 500 MG in IV NS 0.9% 50 ML IV SCH ×2 (11:27→20:51)
[2018-02-10] MEDS: VIT B CMPLX 3/FA/VIT C/BIOTIN 1 TAB TABLET PO SCH (11:28)
[2018-02-10] MEDS: ACIDOPHILUS/BULGARICUS 1 EACH TAB.CHEW PO SCH ×2 (11:28→17:17)
[2018-02-10] MEDS: BENZTROPINE MESYLATE (1 MG) 1 MG TABLET PO SCH (11:28)
[2018-02-10] MEDS: PANTOPRAZOLE 40 MG VIAL IV SCH (11:28)
[2018-02-10] MEDS: QUETIAPINE FUMARATE 25 MG TABLET PO SCH ×2 (11:29→20:52)
[2018-02-10 12:08] LABS: INR 1.39 (0.87-1.13)
--- NOTE | 2018-02-10 12:10 | NUR ---
RN NOTES DR VINICIO TABARES AT BEDSIDE, PT UPDATE GIVEN. PT WITH EPISODES OF HYPOTENSION. CURRENTLY RECEIVEING DIALYSIS,PER MD PT NEEDS GENTLE HYDRATION. PER MD WILL PLACE ORDER
--- NOTE | 2018-02-10 13:45 | NUR ---
RN NOTES Deshawn MENDES CHILDCARE DIRECTOR AT BEDSIDE, PT WAS SEEN AND EVALUATED, LACTIC ACID 3.8, PER CHILDCARE DIRECTOR OKAY TO GIVE GENTLE FLUID HYDRATION, 500ML BOLUS GIVEN, IVF NS@60ML/HR THEREAFTER. NOTED WITH LEFT ARM CELLULITIS, ID CONSULT WILL BE CALLED, KEPT AFFECTED AREA ELEVATED. PT DNR/DNI STATUS, POLST IN THE CHART. VAUGHN SIERRA AWARE ORDERS MADE.
--- NOTE | 2018-02-10 17:25 | NUR ---
RN NOTES STEFANIE HISTOLOGIC AIDE AT BEDSIDE PT WAS SEEN AND EVALUATED. ABDOMEN DISTENDED, FLEXISEAL IN PLACE STILL NOTED WITH DIARRHEA.
[2018-02-10] MEDS: METRONIDAZOLE 500MG/ NS 100ML 500 MG in PREMIX 1 EA IV SCH (18:23)
--- NOTE | 2018-02-10 20:00 | NUR ---
received pt from day shift, alert, follows simple commands, ST, on 1L 02 sat well, lungs partially congested, L arm edema, anuric HD pt, rectal tube intact diarrhea, NPO, able to swallow, R wrist soft restraint on, v/s stable, no pain, pt turned and repositioned.
[2018-02-10] MEDS: IV D5/ 0.9% NACL 1,000 ML IV PRN (20:51)
[2018-02-11] VITALS (60 sets, daily range): BP systolic 60–118; BP diastolic 17–73
--- NOTE | 2018-02-11 00:45 | NUR ---
pt is resting in the bed, v/s stable, no pain, pt turned and repositioned q2hrs.
[2018-02-11] MEDS: BLOOD SUGAR DIAGNOSTIC 1 EACH STRIP IN SCH ×5 (01:08→17:17)
[2018-02-11] MEDS: METRONIDAZOLE 500MG/ NS 100ML 500 MG in PREMIX 1 EA IV SCH ×3 (01:08→17:20)
[2018-02-11] MEDS: VANCOMYCIN HCL 125 MG/2.5 ML ORAL.SUSP PO SCH ×4 (01:08→17:19)
[2018-02-11] MEDS: INSULIN REGULAR, HUMAN 100 UNIT/ML 3 ML VIAL SQ PRN ×2 (01:19→05:35)
--- NOTE | 2018-02-11 04:10 | NUR ---
pt is resting in the bed, no acute distress overnight, SR, ST, v/s stable, no pain, pt cleaned, changed and repositioned q2hrs.
[2018-02-11 04:46] LABS: EOSINOPHILS % (AUTO) 0.3 % (0.0-6.0); HEMATOCRIT 34 % (33-45); LYMPHOCYTES # (AUTO) 2.1 /CMM (0.8-4.8); LYMPHOCYTES % (AUTO) 9.5 % (20.0-44.0); MEAN CORPUSCULAR HGB CONC 32 g/dl (31.0-36.0); MEAN CORPUSCULAR VOLUME 98 fL (82-100); MONOCYTES # (AUTO) 3.4 /CMM (0.1-1.30); MONOCYTES % (AUTO) 15.3 % (2.0-12.0); NEUTROPHILS # (AUTO) 16.8 /CMM (1.8-8.9); NEUTROPHILS % (AUTO) 74.9 % (43.0-81.0); PLATELET COUNT (AUTO) 227 /CMM (150-450); RDW COEFFICIENT OF VARIATION 16.5 (11.5-15.0); RED BLOOD CELL COUNT(AUTO) 3.51 MIL/uL (4.0-5.2); WHITE BLOOD COUNT (AUTO) 22.5 K/uL (4.3-11.0)
[2018-02-11 04:59] LABS: ALBUMIN 1.8 g/dL (3.4-5.0); CALCIUM, SERUM 8.2 mg/dL (8.5-10.1); CARBON DIOXIDE 26 mmol/L (21-32); CHLORIDE 98 mmol/L (98-107); CREATININE 3.4 mg/dL (0.6-1.3); GLUCOSE 154 mg/dL (74-106); MAGNESIUM 1.9 mg/dL (1.8-2.4); SODIUM SERUM 137 mmol/L (136-145); UREA NITROGEN, BLOOD 33 mg/dL (7-18)
[2018-02-11 05:07] LABS: INR 1.29 (0.87-1.13)
[2018-02-11 05:13] LABS: ALANINE AMINOTRANSFERASE 9 U/L (12-78); ALKALINE PHOSPHATASE 71 U/L (46-116); ASPARTATE AMINOTRANSFERASE 30 U/L (15-37); BILIRUBIN,DIRECT 0.3 mg/dL (0.0-0.2); BILIRUBIN,TOTAL 0.6 mg/dL (0.2-1.0); TOTAL PROTEIN, SERUM 5.5 g/dL (6.4-8.2)
[2018-02-11 05:17] LABS: BAND % (MANUAL) 10 % (0.0-5.0); EOSINOPHILS % (MANUAL) 1 % (0-4); LYMPHOCYTES % (MANUAL) 7 % (16-48); METAMYELOCYTES % 2 % (0-0); MONOCYTES % (MANUAL) 11 % (0-11.0); MYELOCYTES % 1 % (0-0); NEUTROPHILS % (MANUAL) 68 (42-76)
[2018-02-11] MEDS: QUETIAPINE FUMARATE 25 MG TABLET PO SCH ×2 (08:30→21:04)
[2018-02-11] MEDS: PANTOPRAZOLE 40 MG VIAL IV SCH (08:32)
[2018-02-11] MEDS: BENZTROPINE MESYLATE (1 MG) 1 MG TABLET PO SCH (08:33)
[2018-02-11] MEDS: ACIDOPHILUS/BULGARICUS 1 EACH TAB.CHEW PO SCH ×2 (08:33→17:19)
[2018-02-11] MEDS: VIT B CMPLX 3/FA/VIT C/BIOTIN 1 TAB TABLET PO SCH (08:33)
[2018-02-11] MEDS: PROSOURCE / PROSTAT (PYXIS) 30 ML UDC PO SCH (08:35)
--- NOTE | 2018-02-11 10:09 | NUR ---
WOUND CARE CONSULT: PT PRESENTS WITH STAGE 2 ULCERS TO SACRUM AND BILATERAL BUTTOCKS WITH SCARRING AND STAINING OF SKIN NOTED. PT NOTED TO HAVE SACRAL DIMPLE. PT HAS CONTINUOUS LIQUID STOOL WITH RECTAL TUBE IN PLACE. SOME LEAKAGE OF LIQUID STOOL NOTED AROUND TUBE. Z GUARD IN USE. DEEP TISSUE INJURIES NOTED TO BE PRESENT ON ADMISSION TO BILATERAL HEELS (INTACT). 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 ALL SKIN PROTECTION AND WOUND RECOMMENDATIONS DISCUSSED WITH NURSING STAFF. PT ON FIRST STEP MATTRESS. WILL SEE PRN. DAIGLE IN AGREEMENT WITH PLAN OF CARE. Addendum: 02/11/18 at 1013 by JAYLA RUFF WNDNU Amended: Links added.
[2018-02-11] MEDS ORDERED: HYDROGEL DRESSING 90 GM TUBE TP PRN (10:30)
[2018-02-11] MEDS ORDERED: HYDROGEL DRESSING 90 GM TUBE TP SCH (10:30)
[2018-02-11] MEDS ORDERED: IV NS 0.9% 1,000 ML IV STA (10:47)
[2018-02-11] MEDS ORDERED: NOREPINEPHRINE 16 MG in IV D5W 500 ML IV PRN (12:00)
--- NOTE | 2018-02-11 19:07 | NUR ---
FICTION AND NONFICTION WRITER PROSE INITIAL NOTES RECEIVED REPORT FROM NURSE REYES. PATIENT IN BED, ASLEEP AT THIS TIME, AROUSES TO TOUCH. BREATHING EVEN AND NONLABORED, ON O2 VIA NC @ 1LPM, TOLERATING WELL, FREE FROM ANY S/S OF RESPIRATORY DISTRESS, SPO2 99% AT THIS TIME. ON TELEMETRY MONITORING, REVEALING SINUS TACHYCARDIA. PATIENT ON LEVOPHED DRIP @ 7MCG/MIN, WITH SBP OF 80MM/HG, WILL MONITOR AND TITRATE ACCORDINGLY. LEFT NARE NGT PATENT AND INTACT, FLUSHED WITH 30 CC AIR AND AUSCULTATED FOR PLACEMENT AND VERIFIED BY 2RNs. FLEXISEAL PATENT AND INTACT, NOTED WITH WATERY STOOL OUTPUT, SCANT AMOUNT. BED IN LOWEST AND LOCKED POSITION, CALL LIGHT LEFT WITHIN EASY REACH, SIDE RAILS UP X3. WILL CONTINUE TO CLOSELY MONITOR
--- NOTE | 2018-02-11 22:15 | NUR ---
ICU/RN RECEIVED PT FROM ER VIA GURNEY TO ROOM 253 W/ ADMITTING DX OF SEPSIS W/ SEPTIC SHOCK,RESP.FAILURE.INTUBATED AND BAGGED BY RT RT,ACCOMPANIED W/RN AND TECH. IN ATTENDANCE.DR REYES AT BEDSIDE AND ASSESSED PT.ORDERS GIVEN ,DOPAMINE DRIP DEC. TO 5MCG/KG/ MIN.AND TO TAPER TO OFF.ON LEVOPHED DRIP AT 30MCG/MIN.PUPILS FULLY DILATED,NO CORNEAL RESPONSE. Addendum: 02/11/18 at 2310 by JACKY PAGAN RN WRONG PATIENT, PLEASE DISREGARD
[2018-02-12] VITALS (104 sets, daily range): BP systolic 50–139; BP diastolic 15–76
[2018-02-12] MEDS: VANCOMYCIN HCL 125 MG/2.5 ML ORAL.SUSP PO SCH ×5 (00:23→23:24)
[2018-02-12] MEDS: BLOOD SUGAR DIAGNOSTIC 1 EACH STRIP IN SCH ×5 (00:23→23:32)
[2018-02-12] MEDS: INSULIN REGULAR, HUMAN 100 UNIT/ML 3 ML VIAL SQ PRN ×3 (00:28→23:38)
--- NOTE | 2018-02-12 01:15 | NUR ---
ICU/RN MONITOR SHOWS SVT RATE OF 200.CALL PLACED TO HAIR,RETURNED CALL W/IN 5MIN.ORDERS RECEIVED AND CARRIED OUT.
[2018-02-12] MEDS ORDERED: IV NS 0.9% 250 ML IV ONE (01:30)
[2018-02-12] MEDS: METRONIDAZOLE 500MG/ NS 100ML 500 MG in PREMIX 1 EA IV SCH ×3 (02:00→18:08)
[2018-02-12 02:01] LABS: HEMATOCRIT 36 % (33-45); HEMOGLOBIN 11.6 g/dL (11.5-14.8); MEAN CORPUSCULAR HGB CONC 33 g/dl (31.0-36.0); MEAN CORPUSCULAR VOLUME 96 fL (82-100); PLATELET COUNT (AUTO) 250 /CMM (150-450)
[2018-02-12 02:07] LABS: WHITE BLOOD COUNT (AUTO) 44.5 K/uL (4.3-11.0)
[2018-02-12] MEDS ORDERED: PHENYLEPHRINE 10 MG/ML VIAL ONE ×3 (02:08→06:24)
[2018-02-12 02:11] LABS: ALBUMIN 1.6 g/dL (3.4-5.0); CARBON DIOXIDE 23 mmol/L (21-32); CHLORIDE 100 mmol/L (98-107); CREATININE 3.9 mg/dL (0.6-1.3); GLUCOSE 188 mg/dL (74-106); MAGNESIUM 1.8 mg/dL (1.8-2.4); PHOSPHORUS 4.2 mg/dL (2.5-4.9); POTASSIUM 3.6 mmol/L (3.5-5.1); SODIUM SERUM 138 mmol/L (136-145); UREA NITROGEN, BLOOD 40 mg/dL (7-18)
[2018-02-12 02:15] LABS: CALCIUM, SERUM 8.4 mg/dL (8.5-10.1)
[2018-02-12] MEDS: PHENYLEPHRINE 40 MG in IV D5W 250 ML IV PRN ×2 (02:21→06:34)
[2018-02-12 02:30] LABS: BAND % (MANUAL) 6 % (0.0-5.0); LYMPHOCYTES % (MANUAL) 7 % (16-48); MONOCYTES % (MANUAL) 5 % (0-11.0)
[2018-02-12 02:31] LABS: METAMYELOCYTES % 2 % (0-0); MYELOCYTES % 1 % (0-0); NEUTROPHILS % (MANUAL) 79 (42-76)
--- NOTE | 2018-02-12 03:10 | NUR ---
ICU/RN HAIR [facility] NOTIFIED OF PT'S CONDITION,LAB RESULTS, PT'S RHYTHM(A-FIB}RATE OF 176.,AFTER PHENYLEPHRINE STARTED THEN 30 MIN. LATER LEVOPHED DISCONTINUED.500ML NS IV WIDE OPEN ORDERED.
[2018-02-12] MEDS ORDERED: IV NS 0.9% 500 ML IV ONE (03:30)
--- NOTE | 2018-02-12 06:00 | NUR ---
ICU/RN PT ON MAXIMUM DOSE OF PHENYLEPHRINE AT 300MCG/MIN.HAIR IN ICU ,UPDATED W/ PT"S CONDITION.SPOKE W/ PT'S DAUGHTER AT LENGTH RE:GRAVENESS OF ILLNESS,DAUGHTER GEARING TOWARDS COMFORT FOCUS..
--- NOTE | 2018-02-12 06:40 | NUR ---
ICU/RN DAUGHTER CALLED IF PT IS IMMINENT OF DYING,WILL VISIT AROUND 0830
--- NOTE | 2018-02-12 07:20 | NUR ---
BOBBIN HANDLER RECEIVED PATIENT FROM THE PREVIOUS SHIFT. ON NON REBREATHER MASK AT THIS TIME. NO ACUTE DISTRESS. ON 300 MCG NEOSENEPRINE. DE LEON DRAINING URINE TO GRAVITY. AFIB ON MONITOR. TURNED AND REPOSITIONED FOR COMFORT AND WOUND PREVENTION. WILL CONTINUE TO MONITOR.
[2018-02-12] MEDS: ACIDOPHILUS/BULGARICUS 1 EACH TAB.CHEW PO SCH ×2 (08:24→18:19)
[2018-02-12] MEDS: VIT B CMPLX 3/FA/VIT C/BIOTIN 1 TAB TABLET PO SCH (08:24)
[2018-02-12] MEDS: QUETIAPINE FUMARATE 25 MG TABLET PO SCH ×2 (08:24→20:03)
[2018-02-12] MEDS: BENZTROPINE MESYLATE (1 MG) 1 MG TABLET PO SCH (08:24)
[2018-02-12] MEDS: PANTOPRAZOLE 40 MG VIAL IV SCH (08:25)
[2018-02-12] MEDS: PROSOURCE / PROSTAT (PYXIS) 30 ML UDC PO SCH (08:26)
[2018-02-12] MEDS: PHENYLEPHRINE 80 MG in IV NS 0.9% 250 ML IV PRN ×2 (08:53→22:20)
[2018-02-12] MEDS ORDERED: AMIODARONE 900 MG in IV D5W 500 ML IV PRN (10:00)
[2018-02-12] MEDS ORDERED: AMIODARONE 150 MG in IV D5W 100 ML IV ONE (10:00)
[2018-02-12] MEDS ORDERED: AMIODARONE 900 MG in IV D5W 482 ML IV PRN (11:00)
[2018-02-12 11:18] LABS: THYROID STIMULATING HORMONE 5.65 uIU/mL (0.358-3.74)
[2018-02-12] MEDS: NOREPINEPHRINE 16 MG in IV D5W 500 ML IV PRN ×2 (12:10→18:37)
[2018-02-12] MEDS: FLUDROCORTISONE 0.1 MG TABLET PO SCH ×3 (12:53→23:24)
[2018-02-12] MEDS: HYDROCORTISONE SOD SUCCINATE 100 MG/2 ML VIAL IV SCH ×3 (12:53→23:24)
--- NOTE | 2018-02-12 13:20 | NUR ---
MEDICAL INSURANCE CLAIMS SPECIALIST PATIENT NOTED TO GO BACK TO AFIB WITH RVR AT RATE 160S. RN MADE THE PIPE TESTER AWARE. RECEIVED ORDERS TO CALL CONTINUE LEVOPHED DESPITE HIGH HEART RATE. PATIENT NOTED TO GET HYPOTENSIVE OFF LEVOPHED. CHARGE NURSE AWARE.
[2018-02-12] MEDS: ALBUMIN 25% 25 GM in PREMIX 1 EA IV SCH ×3 (15:26→23:32)
[2018-02-12] MEDS ORDERED: MISCELLANEOUS MED 1 EA EA XX ONE (17:00)
[2018-02-12] MEDS: VANCOMYCIN FOR RECTAL ENEMA 500 MG RC SCH (18:17)
[2018-02-12] MEDS: FIDAXOMICIN 200 MG TABLET PO SCH (19:27)
--- NOTE | 2018-02-12 20:00 | NUR ---
SENIOR MICROSTRATEGY DEVELOPER - NOTES - RECEIVED PATIENT FROM THE PREVIOUS SHIFT. ON NON REBREATHER MASK AT THIS TIME. NO ACUTE DISTRESS. ON 300 MCG NEOSYNEPHRINE. DE LEON DRAINING URINE TO GRAVITY. TURNED AND REPOSITIONED FOR COMFORT AND WOUND PREVENTION. WILL CONTINUE TO MONITOR.
[2018-02-13] VITALS (97 sets, daily range): BP systolic 63–157; BP diastolic 18–79
--- NOTE | 2018-02-13 01:00 | NUR ---
PT WAS IN SINUS TACH HR 110S FOR A WHILE AND WENT BACK TO AFIB RVR 150S-160S
[2018-02-13] MEDS: METRONIDAZOLE 500MG/ NS 100ML 500 MG in PREMIX 1 EA IV SCH ×3 (02:19→17:09)
[2018-02-13] MEDS: VANCOMYCIN FOR RECTAL ENEMA 500 MG RC SCH ×3 (02:19→17:21)
[2018-02-13] MEDS: PHENYLEPHRINE 80 MG in IV NS 0.9% 250 ML IV PRN ×5 (02:30→20:29)
[2018-02-13] MEDS ORDERED: HYDROCORTISONE SOD SUCCINATE 100 MG/2 ML VIAL ONE (06:28)
[2018-02-13] MEDS: BLOOD SUGAR DIAGNOSTIC 1 EACH STRIP IN SCH ×4 (06:31→23:29)
[2018-02-13] MEDS: INSULIN REGULAR, HUMAN 100 UNIT/ML 3 ML VIAL SQ PRN ×4 (06:32→23:29)
[2018-02-13] MEDS: FLUDROCORTISONE 0.1 MG TABLET PO SCH ×4 (06:33→23:25)
[2018-02-13] MEDS: HYDROCORTISONE SOD SUCCINATE 100 MG/2 ML VIAL IV SCH ×4 (06:33→23:25)
[2018-02-13] MEDS: ALBUMIN 25% 25 GM in PREMIX 1 EA IV SCH (06:33)
[2018-02-13] MEDS: VANCOMYCIN HCL 125 MG/2.5 ML ORAL.SUSP PO SCH ×4 (06:34→23:25)
--- NOTE | 2018-02-13 08:00 | NUR ---
Pt obtunded, moans to light painful stimuli, on non-rebreather 100%, rhonchi. Levo and Mauricio in progress, will titrate levo as condition permits. Pt assisted with oral care and skin care. Left hip redness noted. pt repositioned and L hip offloaded.
[2018-02-13] MEDS: PROSOURCE / PROSTAT (PYXIS) 30 ML UDC PO SCH (09:00)
[2018-02-13] MEDS: BENZTROPINE MESYLATE (1 MG) 1 MG TABLET PO SCH (09:00)
[2018-02-13] MEDS: QUETIAPINE FUMARATE 25 MG TABLET PO SCH ×2 (09:00→20:49)
[2018-02-13] MEDS: NOREPINEPHRINE 16 MG in IV D5W 500 ML IV PRN (09:01)
[2018-02-13] MEDS: PANTOPRAZOLE 40 MG VIAL IV SCH (09:06)
[2018-02-13] MEDS: ACETAMINOPHEN 325 MG TABLET PO PRN ×2 (09:07→15:41)
[2018-02-13] MEDS: VIT B CMPLX 3/FA/VIT C/BIOTIN 1 TAB TABLET PO SCH (09:07)
[2018-02-13] MEDS: FIDAXOMICIN 200 MG TABLET PO SCH ×2 (09:07→17:09)
[2018-02-13] MEDS: ACIDOPHILUS/BULGARICUS 1 EACH TAB.CHEW PO SCH ×2 (09:07→17:08)
[2018-02-13 10:25] LABS: CALCIUM, SERUM 8.3 mg/dL (8.5-10.1); CARBON DIOXIDE 25 mmol/L (21-32); CHLORIDE 99 mmol/L (98-107); CREATININE 4.4 mg/dL (0.6-1.3); GLUCOSE 339 mg/dL (74-106); POTASSIUM 3.3 mmol/L (3.5-5.1); SODIUM SERUM 136 mmol/L (136-145); UREA NITROGEN, BLOOD 42 mg/dL (7-18)
[2018-02-13 12:00] LABS: HEMATOCRIT 31 % (33-45); HEMOGLOBIN 10.1 g/dL (11.5-14.8); MEAN CORPUSCULAR HGB CONC 32 g/dl (31.0-36.0); MEAN CORPUSCULAR VOLUME 97 fL (82-100); PLATELET COUNT (AUTO) 143 /CMM (150-450); RDW COEFFICIENT OF VARIATION 15.8 (11.5-15.0); RED BLOOD CELL COUNT(AUTO) 3.24 MIL/uL (4.0-5.2)
[2018-02-13 12:36] LABS: WHITE BLOOD COUNT (AUTO) 47.5 K/uL (4.3-11.0)
--- NOTE | 2018-02-13 13:00 | NUR ---
Family at bedside, updated on progress by Dr. Rodrigues. Family verbalizes understanding and daughter stats that they are leaning toward palliative care.
[2018-02-13 13:27] LABS: BAND % (MANUAL) 2 % (0.0-5.0); LYMPHOCYTES % (MANUAL) 5 % (16-48); METAMYELOCYTES % 1 % (0-0); MONOCYTES % (MANUAL) 6 % (0-11.0); MYELOCYTES % 1 % (0-0); NEUTROPHILS % (MANUAL) 85 (42-76)
--- NOTE | 2018-02-13 13:45 | NUR ---
Levophed titrated to 1 justyna/kg/h, Vanco enema administered. l hip redness has some purple color in the middle, poss. DTI, photo placed in chart.
--- NOTE | 2018-02-13 18:00 | NUR ---
Full bed bath and skin care as ordered. Medications as ordered. no change in condition at this time.
[2018-02-13] MEDS: IV D5/ 0.9% NACL 1,000 ML IV PRN (18:31)
--- NOTE | 2018-02-13 20:44 | NUR ---
received pt from day shift, obtunded, A fib uncontrolled, receiving levo at 1mcg, and syl at 300mcg, on non rebreather at 15L, sat well, lungs congested, anasarca, NG clamped, rectal tube intact, anuric, HD pt, v/s stable, no pain, pt turned and repositioned.
--- NOTE | 2018-02-13 21:00 | NUR ---
off of levo.
[2018-02-14] VITALS (43 sets, daily range): BP systolic 42–134; BP diastolic 18–76
--- NOTE | 2018-02-14 | NUR ---
pt is resting in the bed, obtunded, converted to SR at 2230, receiving syl at 250mcg, v/s stable, no pain, pt turned and repositioned q2hrs.
[2018-02-14] MEDS: PHENYLEPHRINE 80 MG in IV NS 0.9% 250 ML IV PRN ×4 (00:27→15:22)
[2018-02-14] MEDS: VANCOMYCIN FOR RECTAL ENEMA 500 MG RC SCH ×2 (01:30→09:08)
[2018-02-14] MEDS: METRONIDAZOLE 500MG/ NS 100ML 500 MG in PREMIX 1 EA IV SCH ×2 (01:30→09:09)
--- NOTE | 2018-02-14 04:13 | NUR ---
pt is resting in the bed, obtunded, SR, receiving syl at 250mcg, non rebreather at 15L, sat well, v/s stable, no pain, pt cleaned, changed and repositioned q2hrs.
[2018-02-14] MEDS: VANCOMYCIN HCL 125 MG/2.5 ML ORAL.SUSP PO SCH ×3 (05:00→12:00)
[2018-02-14] MEDS: HYDROCORTISONE SOD SUCCINATE 100 MG/2 ML VIAL IV SCH ×3 (05:00→12:00)
[2018-02-14] MEDS: FLUDROCORTISONE 0.1 MG TABLET PO SCH ×3 (05:01→12:00)
[2018-02-14 05:24] LABS: HEMATOCRIT 34 % (33-45); HEMOGLOBIN 11.2 g/dL (11.5-14.8); MEAN CORPUSCULAR HGB CONC 33 g/dl (31.0-36.0); MEAN CORPUSCULAR VOLUME 96 fL (82-100); PLATELET COUNT (AUTO) 111 /CMM (150-450); RED BLOOD CELL COUNT(AUTO) 3.53 MIL/uL (4.0-5.2)
[2018-02-14 05:41] LABS: CALCIUM, SERUM 8.2 mg/dL (8.5-10.1); CARBON DIOXIDE 27 mmol/L (21-32); CHLORIDE 102 mmol/L (98-107); CREATININE 4.4 mg/dL (0.6-1.3); GLUCOSE 277 mg/dL (74-106); MAGNESIUM 1.8 mg/dL (1.8-2.4); SODIUM SERUM 138 mmol/L (136-145); UREA NITROGEN, BLOOD 47 mg/dL (7-18)
[2018-02-14 05:44] LABS: WHITE BLOOD COUNT (AUTO) 48.6 K/uL (4.3-11.0)
[2018-02-14 05:52] LABS: BAND % (MANUAL) 3 % (0.0-5.0); LYMPHOCYTES % (MANUAL) 4 % (16-48); METAMYELOCYTES % 3 % (0-0); MONOCYTES % (MANUAL) 4 % (0-11.0); MYELOCYTES % 1 % (0-0); NEUTROPHILS % (MANUAL) 85 (42-76)
[2018-02-14] MEDS: INSULIN REGULAR, HUMAN 100 UNIT/ML 3 ML VIAL SQ PRN (05:54)
[2018-02-14] MEDS: BLOOD SUGAR DIAGNOSTIC 1 EACH STRIP IN SCH ×3 (05:55→12:00)
--- NOTE | 2018-02-14 06:49 | NUR ---
WOUND CARE CONSULT PATIENT SEEN AND LEFT HIP EVALUATED. PLEASE SEE WOUND TRANSMISSION MECHANIC IN PCS FOR TODAY. LEFT HIP INTACT DTI ASSESSMENT DONE. RECOMMENDATIONS MADE. DISCUSSED WITH NURSING AT THE BEDSIDE. PATIENT IS NOTED TO HAVE MULTIPLE CO-MORBIDITIES, IS ON PRESSOR SUPPORT FOR BP. FURTHER SKIN BREAKDOWN MAY BE UNAVOIDABLE AT THIS TIME. WOUND CARE WILL CONTINUE TO MONITOR. ALL SKIN MANAGEMENT AND PRESSURE ULCER PREVENTION MEASURES NOTED TO BE IN PLACE AT THE TIME OF THIS INCIDENT. Addendum: 02/14/18 at 0652 by CLARENCE FRANCO WNDNU Amended: Links added.
[2018-02-14] MEDS: VIT B CMPLX 3/FA/VIT C/BIOTIN 1 TAB TABLET PO SCH (09:09)
[2018-02-14] MEDS: PANTOPRAZOLE 40 MG VIAL IV SCH (09:09)
[2018-02-14] MEDS: BENZTROPINE MESYLATE (1 MG) 1 MG TABLET PO SCH (09:09)
[2018-02-14] MEDS: FIDAXOMICIN 200 MG TABLET PO SCH (09:09)
[2018-02-14] MEDS: ACIDOPHILUS/BULGARICUS 1 EACH TAB.CHEW PO SCH (09:09)
[2018-02-14] MEDS: PROSOURCE / PROSTAT (PYXIS) 30 ML UDC PO SCH (09:10)
[2018-02-14] MEDS: QUETIAPINE FUMARATE 25 MG TABLET PO SCH (09:10)
[2018-02-14] MEDS ORDERED: METOCLOPRAMIDE HCL 10 MG/2 ML VIAL IV SCH (11:30)
[2018-02-14] MEDS ORDERED: METOCLOPRAMIDE HCL 10 MG/10 ML UDC GT SCH (12:00)
--- NOTE | 2018-02-14 12:00 | NUR ---
ICU/RN: Had extensive dw family at bedside, doctors notes reviewed. Aware of grim prognosis for pt based on MD notes. Per daughter Katy, "I have already decided, I don't want her to suffer anymore. Please hold those [1200,1300] meds."
--- NOTE | 2018-02-14 15:45 | NUR ---
ICU/RN: Dr Rodrigues at bedside. Long dw family regarding grim prognosis. Family verbalizes understanding and will notify staff when ready to proceed with comfort care.
--- NOTE | 2018-02-14 16:13 | NUR ---
ICU/RN: Spoke with Isak, daughter, states that whole family agrees to comfort care and would like to stop aggressive treatment at this time. Dr Rodrigues notified.
[2018-02-14] MEDS ORDERED: LORAZEPAM INJ 2 MG/ML VIAL IV PRN (16:30)
[2018-02-14] MEDS ORDERED: MORPHINE SULFATE INJ 2 MG/ML DISP.SYRIN IV PRN (16:30)
--- NOTE | 2018-02-14 20:29 | NUR ---
received pt from day shift, comatose, on comfort measures only, SB, SBP 42-45, sat 99%, family at the bedside.
--- NOTE | 2018-02-14 20:57 | NUR ---
Asystole, pupils non reactive, no BP, no pulses in major arteries, no reflexes, pronounced by charged nurse, family at the bedside.
--- NOTE | 2018-02-14 21:00 | NUR ---
notified regarding pt .
--- NOTE | 2018-02-14 21:24 | NUR ---
awaiting for mortuary to warp picker the body.
--- NOTE | 2018-02-14 23:01 | NUR ---
pt's body picked up by mortuary services, all paper were singed.
== END 2018-02-14 20:57 | disposition expired | DRG 871 ==
LOC: ER 12:51 → TELE 15:57 → ICU 23:50
PROVIDERS: ADMIT Registered Nurse; ATTEND Registered Nurse
PROC: 5A1D70Z Performance of Urinary Filtration, Intermittent, Less than 6 Hours Per Day (ICD-10-PCS; 2018-02-10)
PROC: 02HV33Z Insertion of Infusion Device into Superior Vena Cava, Percutaneous Approach (ICD-10-PCS; principal; 2018-02-11)
PROC: B548ZZA Ultrasonography of Superior Vena Cava, Guidance (ICD-10-PCS; 2018-02-11)
DX: A41.9 Sepsis, unspecified organism (principal); D65 Disseminated intravascular coagulation [defibrination syndrome]; J96.01 Acute respiratory failure with hypoxia; R65.21 Severe sepsis with septic shock; A04.72 Enterocolitis due to Clostridium difficile, not specified as recurrent; J90 Pleural effusion, not elsewhere classified; L89.312 Pressure ulcer of right buttock, stage 2; I13.2 Hypertensive heart and chronic kidney disease with heart failure and with stage 5 chronic kidney disease, or end stage renal disease; L89.322 Pressure ulcer of left buttock, stage 2; E11.22 Type 2 diabetes mellitus with diabetic chronic kidney disease; G92 Toxic encephalopathy; N18.6 End stage renal disease; I50.33 Acute on chronic diastolic (congestive) heart failure; K92.2 Gastrointestinal hemorrhage, unspecified; E87.1 Hypo-osmolality and hyponatremia; A04.9 Bacterial intestinal infection, unspecified; L03.114 Cellulitis of left upper limb; E87.2 Acidosis; K56.7 Ileus, unspecified; N17.9 Acute kidney failure, unspecified; Z51.5 Encounter for palliative care; I48.91 Unspecified atrial fibrillation; R65.20 Severe sepsis without septic shock; Z66 Do not resuscitate; Z99.2 Dependence on renal dialysis; E86.0 Dehydration; D63.8 Anemia in other chronic diseases classified elsewhere; D69.2 Other nonthrombocytopenic purpura; E78.5 Hyperlipidemia, unspecified; E87.5 Hyperkalemia; K21.9 Gastro-esophageal reflux disease without esophagitis; L60.3 Nail dystrophy; L89.620 Pressure ulcer of left heel, unstageable; L89.610 Pressure ulcer of right heel, unstageable; K80.20 Calculus of gallbladder without cholecystitis without obstruction; M19.90 Unspecified osteoarthritis, unspecified site; D63.1 Anemia in chronic kidney disease; F03.90 Unspecified dementia, unspecified severity, without behavioral disturbance, psychotic disturbance, mood disturbance, and anxiety; E83.9 Disorder of mineral metabolism, unspecified; E88.09 Other disorders of plasma-protein metabolism, not elsewhere classified; F09 Unspecified mental disorder due to known physiological condition
CPT/HCPCS: 36415; 71045-TC; 74018; 80048-TC; 80053-TC; 80061-TC; 80076-TC; 80202-TC; 82040-TC; 82247-TC; 82248-TC; 82272-TC; 82962-TC; 83605-TC; 83735-TC; 84100-TC; 84439-TC; 84443-TC; 84484-TC; 85025-TC; 85385-TC; 85610-TC; 85730-TC; 87040-TC; 87045-TC; 87081-TC; 89055; 90935-TC; 93307-TC; A4216; A4606; A6248; A6402; C1751; C9113; J0282; J1720; J1815; J2060; J2185; J2270; J2370; J3370; J3490; J7030; J7040; J7042; J7050; J7060; P9047; Z7610